=== PATIENT | female | born 1975 | race Two or more races ===

== ENCOUNTER 2020-08-23 16:19 | Inpatient (IN) | payer OTHER ==
[~2020-08-23] VITALS: Ht 170.2 cm; Wt 92.9 kg
[2020-08-23] MEDS ORDERED: NS 1,000 ML IV ONE (17:00)
[2020-08-23] MEDS ORDERED: GI COCKTAIL 50ML BTL(HYOSCYAMINE/MAALOX/LIDOCAINE VISCOUS)(1:3:1) PO ONE (17:00)
[2020-08-23] MEDS: GASTROGRAFIN SOLUTION 30ML PO SCH ×2 (17:19→17:54)
--- NOTE | 2020-08-23 17:26 | REPVR ---
PROCEDURE INFORMATION: Exam: XR Chest, 2 Views Exam date and time: 08/23/2020 5:08 PM Age: 44 years old Clinical indication: Other: Epigastric pain TECHNIQUE: Imaging protocol: XR of the chest Views: 2 views. COMPARISON: No relevant prior studies available. FINDINGS: Lungs: Unremarkable. No consolidation. Pleural space: Unremarkable. No pleural effusion. No pneumothorax. Heart/Mediastinum: Unremarkable. No cardiomegaly. Bones/joints: Unremarkable. IMPRESSION: No acute findings. Electronically signed by: Cathi Canales On 08/23/2020 17:25:55 PM
[2020-08-23 17:43] LABS: BASO # 0.1 10^3/uL (0.0-0.2); BASO % 0.5 % (0.0-1.0); EOS # 0.1 10^3/uL (0.0-0.5); EOS % 0.6 % (0.0-3.0); HEMATOCRIT 21.3 % (36.0-47.0); LYMPH # 2.4 10^3/uL (1.5-5.0); LYMPH % 23.3 % (24.0-44.0); MEAN CORPUSCULAR HEMOGLOBIN 14.1 pg (27.0-33.0); MEAN CORPUSCULAR HGB CONC 23.5 g/dl (32.0-36.5); MONO # 0.7 10^3/uL (0.0-0.8); MONO % 7.1 % (0.0-5.0); NEUTROPHILS # 6.9 10^3/uL (1.5-8.5); PLATELET COUNT, AUTOMATED 580 10^3/uL (150-450); RED BLOOD COUNT 3.55 10^6/uL (4.00-5.40); WHITE BLOOD COUNT 10.2 10^3/uL (4.0-10.0)
[2020-08-23 18:01] LABS: ALBUMIN 3.7 GM/DL (3.2-5.2); ALT/SGPT 13 U/L (12-78); BILIRUBIN,DIRECT < 0.1 MG/DL (0.0-0.2); BILIRUBIN,TOTAL 0.4 MG/DL (0.2-1.0); CK-MB VALUE MASS < 1.0 NG/ML (<3.6); CPK CREATINE PHOSPHOKINASE 39 U/L (26-192); LIPASE 73 U/L (73-393); MB/CK RELATIVE INDEX 2.56 (< OR =4); TROPONIN I < 0.02 NG/ML (< 0.10)
[2020-08-23] MEDS ORDERED: ISOVUE-370 76% 100ML VIAL As Ordered ONE (18:34)
--- NOTE | 2020-08-23 19:19 | REPVR ---
PROCEDURE INFORMATION: Exam: CT Abdomen And Pelvis With Contrast Exam date and time: 08/23/2020 6:43 PM Age: 44 years old Clinical indication: Abdominal pain; Epigastric; Additional info: Epigastric pain, 15mo S/P afia-en-y TECHNIQUE: Imaging protocol: Computed tomography of the abdomen and pelvis with intravenous contrast. Radiation optimization: All CT scans at this facility use at least one of these dose optimization techniques: automated exposure control; mA and/or kV adjustment per patient size (includes targeted exams where dose is matched to clinical indication); or iterative reconstruction. Contrast material: ISOVUE 370; Contrast volume: 100 ml; Contrast route: INTRAVENOUS (IV); Other contrast: Oral; COMPARISON: No relevant prior studies available. FINDINGS: Lungs: The lung bases are unremarkable. Mediastinal space: There is thickening of the wall of the distal esophagus. Liver: There are no focal liver lesions. Gallbladder and bile ducts: The gallbladder is unremarkable. Pancreas: The pancreas is normal. Spleen: The spleen is normal. Adrenals: The adrenal glands are unremarkable. Kidneys and ureters: The kidneys are unremarkable. Stomach and bowel: There is no definite evidence of intestinal obstruction. Small bowel loops in the left upper quadrant postoperative bed measure up to 2.6 cm in width. Appendix: No evidence of appendicitis. Intraperitoneal space: No free air. No significant fluid collection. Vasculature: There is no evidence of an infrarenal abdominal aortic aneurysm. Lymph nodes: Unremarkable. No enlarged lymph nodes. Urinary bladder: The bladder is unremarkable. Reproductive: Unremarkable as visualized. Bones/joints: Unremarkable. No acute fracture. Soft tissues: Unremarkable. Other findings: Evidence of Afia-en-Y procedure. IMPRESSION: 1. No definite evidence of small bowel obstruction. Bowel loops are at upper limits of normal in width in the left upper quadrant but this may be postoperative finding. 2. There is thickening of the distal esophagus which could be due to esophagitis but may also be postoperative. Electronically signed by: Cathi Canales On 08/23/2020 19:19:43 PM
[2020-08-23 20:08] VITALS: BP 125/60
[2020-08-23 20:31] VITALS: BP 116/68
[2020-08-23] MEDS ORDERED: ACETAMINOPHEN TAB 650MG DOSE (2X325MG) PO PRN (20:45)
[2020-08-23] MEDS ORDERED: [UNRECOGNIZED DRUG - CODE] PO (20:49)
[2020-08-23] MEDS ORDERED: DESM0.1T2 PO (20:49)
[2020-08-23] MEDS ORDERED: TEMO0.0517 TOP (20:49)
[2020-08-23] MEDS ORDERED: LORA-674 PO (20:49)
[2020-08-23] MEDS ORDERED: METF-838 PO (20:49)
[2020-08-23] MEDS ORDERED: SALI0.6530 (20:49)
[2020-08-23] MEDS ORDERED: VANI1CRE5 TOP (20:49)
--- NOTE | 2020-08-23 21:03 | HPEPDOC ---
General Date of Admission 08/23/20 Date of Service: Aug 23, 2020 Chief Complaint The patient is a 44-year-old female admitted with a reason for visit of Chest Pain. Source: Patient Exam Limitations: No limitations Timing/Duration: Day(s) Severity: Moderate Associated Symptoms: Shortness of breath History of Present Illness Patient is 44 years old female with past medical history of morbid obesity, status post gastric bypass surgery 15 months ago, pituitary adenoma diagnosed in 2012 currently patient takes desmopressin presented hospital with increased shortness of breath, epigastric pain, lightheadedness and dizziness. Patient stated that she has been having the symptoms for past few weeks. Of note patient stated that she takes iron supplementation and vitamins. Patient denied blood in the stool, however she noticed a few episodes of black stool. Of note patient takes naproxen for pain In ER patient was found to have hemoglobin of 5, hematocrit 22. Stool occult blood was negative. CT abdomen/pelvis showed There is thickening of the distal esophagus which could be due to esophagitis but may also be postoperative Home Medications Scheduled Desmopressin Acetate (Desmopressin Acetate) 0.1 Mg Tablet, 0.1 MG PO QID, ( Reported) Metformin HCl (Metformin HCl ER) 500 Mg Tab.er.24h, 1,000 MG PO BID, (Reported) Scheduled PRN Clobetasol Propionate (Temovate) 15 Gm Oint...g., 1 DOSE TOP BID PRN for PSORIASIS, (Reported) Emollient Base (Vanicream) 453 Gm Cream..g., 1 DOSE TOP BID PRN for PSORIASIS, (Reported) Loratadine (Loratadine) 10 Mg Tablet, 10 MG PO DAILY PRN for ALLERGY SYMPTOMS, (Reported) Naproxen (Naproxen) 500 Mg Tablet, 500 MG PO BID PRN for PAIN, (Reported) Phenol (Sore Throat [place]) 177 Ml [place], 1 SPRAY PO Q6H PRN for SORE THROAT, (Reported) Sodium Chloride ([place] Nasal [place]) 88 Ml [place], 1 SPRAY NA QID PRN for NASAL DRYNESS, (Reported) Allergies Coded Allergies: No Known Allergies (Unverified , 08/23/20) Past Medical History Medical History history of morbid obesity, status post gastric bypass surgery 15 months ago, pituitary adenoma diagnosed in 2013 Surgical History Gastric bypass surgery Family History Mother had a stroke Social History * Smoker: Denies Alcohol: Denies Drugs: denies A-FIB/CHADSVASC A-FIB History Current/History of A-Fib/PAF?: No Current PO Anticoag Therapy: No Review of Systems Constitutional: Denies: Chills Eyes: Denies: Pain ENT: Denies: Head Aches Skin: Denies: Rash, Lesions Pulmonary: Reports: Dyspnea Cardiovascular: Denies: Chest Pain, Palpitations Gastrointestinal: Reports: Abdominal Pain (epigastric); Denies: Nausea, Vomiting Genitourinary: Denies: Dysuria, Frequency Hematologic: Denies: Bruising Endocrine: Denies: Polydipsia Musculoskeletal: Denies: Neck Pain, Back Pain Neurological: Denies: Weakness Psych: Reports: Mood Normal Physical Examination General Exam: Positive: Alert, Cooperative Eye Exam: Positive: PERRLA ENT Exam: Positive: Atraumatic Neck Exam: Positive: Supple; Negative: JVD Chest Exam: Positive: Clear to auscultation Heart Exam: Positive: Rate Normal Telemetry: Positive: No significant arrhythmia Abdomen Exam: Positive: Normal bowel sounds Extremity Exam: Negative: Clubbing, Cyanosis Neuro Exam: Positive: Strength at 5/5 X4 ext, Cranial Nerves 3-12 NL Psych Exam: Positive: Mental status NL Vital Signs Vital Signs Date Time Temp Pulse Resp B/P (MAP) Pulse Ox O2 Delivery O2 Flow Rate FiO2 08/23/20 20:31 98.1 80 18 116/68 100 Room Air Laboratory Data Labs 24H Laboratory Tests 2 08/23/20 17:07: Immature Granulocyte % (Auto) 0.5, Neutrophils (%) (Auto) 68.0H, Lymphocytes (%) (Auto) 23.3L, Monocytes (%) (Auto) 7.1H, Eosinophils (%) (Auto) 0.6, Basophils (%) (Auto) 0.5, Neutrophils # (Auto) 6.9, Lymphocytes # (Auto) 2.4, Monocytes # (Auto) 0.7, Eosinophils # (Auto) 0.1, Basophils # (Auto) 0.1, Nucleated Red Blood Cells % (auto) 0.0, Total Bilirubin 0.4, Direct Bilirubin < 0.1, Aspartate Amino Transf (AST/SGOT) 8, Alanine Aminotransferase (ALT/SGPT) 13, Alkaline Phosphatase 61, Total Creatine Kinase 39, Creatine Kinase MB < 1.0, Creatine Kinase MB Relative Index 2.56, Troponin I < 0.02, Total Protein 8.0, Albumin 3.7, Albumin/Globulin Ratio 0.9L, Lipase 73 08/23/20 17:08: POC Glucose (Misc Panel) 92, POC Sodium (Misc Panel) 143, POC Potassium (Misc Panel) 3.8, POC Chloride (Misc Panel) 106, POC Total CO2 (Misc Panel) 22.0L, POC Blood Urea Nitrogen (Misc Panel 9, POC Ionized Calcium (Misc Panel) 4.9, POC Creatinine (Misc Panel) 0.6, POC Hematocrit (Misc Panel) 22.0L CBC/BMP Laboratory Tests 08/23/20 17:07 Assessment/Plan Patient is 44 years old female with past medical history of morbid obesity, status post gastric bypass surgery 15 months ago, pituitary adenoma diagnosed in 2012 currently patient takes desmopressin presented hospital with increased shortness of breath, epigastric pain, lightheadedness and dizziness. Patient stated that she has been having the symptoms for past few weeks. Of note patient stated that she takes iron supplementation and vitamins. In ER patient was found to have hemoglobin of 5, hematocrit 22. Stool occult blood was negative. CT abdomen/pelvis showed There is thickening of the distal esophagus which could be due to esophagitis but may also be postoperative Problems (1) Acute anemia Status: Acute Problem Text: Differential diagnosis includes GI bleed secondary to NSAIDs or deficiency in production secondary to malabsorption due to previous gastric bypa ss surgery 2 units of blood transfusion Consider GI consult in the morning H&H every 6 hours Will repeat stool for occult blood (2) Epigastric pain Status: Acute Problem Text: We'll check stool for H. pylori, then start PPI Most likely patient will need EGD and colonoscopy See above Plan / VTE VTE Prophylaxis Ordered?: No VTE Exclusion Pharmacological: Active Bleeding JOHN LEUNG DO Aug 23, 2020 21:03
[2020-08-23] MEDS ORDERED: NAPR-885 PO (21:12)
[2020-08-23 21:13] VITALS: BP 132/60
[2020-08-23] MEDS ORDERED: CLOBETASOL PROP 0.05% OINT 30 GM TOP PRN (21:45)
[2020-08-23] MEDS ORDERED: CHLORASEPTIC SPRAY PO PRN (21:45)
[2020-08-23] MEDS ORDERED: LORATADINE 10 MG TAB PO PRN (21:45)
[2020-08-23] MEDS ORDERED: SODIUM CHLORIDE NASAL 0.65% SPRAY BTL (OCEAN) PRN (21:45)
[2020-08-23] MEDS ORDERED: VANICREAM MOISTURIZING SKIN CREAM 113GM TUBE TOP PRN (21:45)
[2020-08-23 22:09] VITALS: BP 143/60
[2020-08-23 22:22] VITALS: BP 112/49
[2020-08-24] VITALS (17 sets, daily range): BP systolic 99–119; BP diastolic 44–72
[2020-08-24] MEDS ORDERED: ONDANSETRON 4MG/2ML VIAL IV PRN
[2020-08-24] MEDS: DESMOPRESSIN ACETATE 0.1 MG TAB PO SCH ×5 (00:11→20:50)
[2020-08-24 00:21] LABS: HEMATOCRIT 24.7 % (36.0-47.0)
[2020-08-24 00:29] LABS: HEMOGLOBIN 6.1 g/dl (12.0-15.5)
[2020-08-24 06:36] LABS: HEMATOCRIT 23.8 % (36.0-47.0); MEAN CORPUSCULAR HEMOGLOBIN 17.3 pg (27.0-33.0); MEAN CORPUSCULAR HGB CONC 26.5 g/dl (32.0-36.5); MEAN CORPUSCULAR VOLUME 65.2 fl (80.0-96.0); PLATELET COUNT, AUTOMATED 483 10^3/uL (150-450); RED BLOOD COUNT 3.65 10^6/uL (4.00-5.40); WHITE BLOOD COUNT 9.7 10^3/uL (4.0-10.0)
[2020-08-24 06:42] LABS: HEMOGLOBIN 6.3 g/dl (12.0-15.5)
[2020-08-24 06:44] LABS: BLOOD UREA NITROGEN 10 MG/DL (7-18); CALCIUM LEVEL 8.1 MG/DL (8.5-10.1); CARBON DIOXIDE LEVEL 27 MEQ/L (21-32); CHLORIDE LEVEL 110 MEQ/L (98-107); CREATININE FOR GFR 0.65 MG/DL (0.55-1.30); GLOMERULAR FILTRATION RATE > 60.0 (>58); GLUCOSE, FASTING 82 MG/DL (70-100); MAGNESIUM LEVEL 2.6 MG/DL (1.8-2.4); POTASSIUM SERUM 4.2 MEQ/L (3.5-5.1); SODIUM LEVEL 141 MEQ/L (136-145)
--- NOTE | 2020-08-24 08:23 | ECGEPIP ---
[facility] - ED Test Date: 2020-08-23 Pat Name: PRIYA WATSON Department: Room: [place] [address] Gender: Female Chief Executive Or Managing Director: elaina : 1975 Requested By: SHAHLA LEE Order Number: [id number] Reading MD: Ever Devine Measurements Intervals [place] Rate: 66 P: 45 AL: 123 QRS: 38 QRSD: 91 T: 34 QT: 396 QTc: 418 Interpretive Statements SINUS RHYTHM NSTTW ABNORMALITY(S) NO PRIORS FOR COMPARISON Electronically Signed on 08-24-2020 8:23:16 EDT by Ever Devine
[2020-08-24] MEDS ORDERED: metFORMIN XR 500MG TAB *GLUCOPHAGE XR PO SCH (09:00)
[2020-08-24 09:56] LABS: HEMATOCRIT 24.9 % (36.0-47.0); MEAN CORPUSCULAR HEMOGLOBIN 17.6 pg (27.0-33.0); MEAN CORPUSCULAR HGB CONC 26.5 g/dl (32.0-36.5); MEAN CORPUSCULAR VOLUME 66.4 fl (80.0-96.0); PLATELET COUNT, AUTOMATED 480 10^3/uL (150-450); RED BLOOD COUNT 3.75 10^6/uL (4.00-5.40); WHITE BLOOD COUNT 9.8 10^3/uL (4.0-10.0)
[2020-08-24 10:02] LABS: HEMOGLOBIN 6.6 g/dl (12.0-15.5)
[2020-08-24] MEDS ORDERED: GLUCOSE 4GM CHEW TABLET PO PRN (10:15)
[2020-08-24] MEDS ORDERED: DEXTROSE 50% 50 ML SYRINGE IV PRN (10:15)
[2020-08-24] MEDS ORDERED: GLUCAGON INJ 1MG VIAL SC PRN (10:15)
[2020-08-24 10:19] LABS: PERCENT SATURATION 6.4 % (13.2-45.0)
[2020-08-24] MEDS ORDERED: METAMUCIL (PSYLLIUM) PACKET PO PRN (11:00)
[2020-08-24] MEDS: HumaLOG INSULIN (NovoLOG) PER UNIT SC SCH ×3 (12:00→20:48)
[2020-08-24 18:08] LABS: HEMATOCRIT 32.8 % (36.0-47.0); MEAN CORPUSCULAR HEMOGLOBIN 19.2 pg (27.0-33.0); MEAN CORPUSCULAR VOLUME 68.5 fl (80.0-96.0); RED BLOOD COUNT 4.79 10^6/uL (4.00-5.40); WHITE BLOOD COUNT 11.9 10^3/uL (4.0-10.0)
[2020-08-24 18:12] LABS: HEMOGLOBIN 9.2 g/dl (12.0-15.5); PLATELET COUNT, AUTOMATED 412 10^3/uL (150-450)
--- NOTE | 2020-08-24 19:21 | IPNPDOC ---
Date Seen The patient was seen on 08/24/20. Progress Note SUBJECTIVE: Did not correct appropriately s/p 2 units PRBC and was given another 2 PRBC today. CBC post transfusion .. Iron low at 27, will order iron infusions. Patient states to feel improved, denies chest pain, shortness of breath, n/v/d. OBJECTIVE: VITAL SIGNS: Please see below PHYSICAL EXAMINATION: CONSTITUTIONAL: No acute distress, resting comfortably, AAO x 3 EYES: PERRLA, EOM intact HENT, MOUTH: Normocephalic, atraumatic, moist mucous membranes NECK: SUPPLE, no JVD, no lymphadenopathy, no carotid bruit CV: Regular rate and rhythm, S1S2 normal, no murmurs/rubs/gallops RESPIRATORY: Clear to auscultation bilaterally, no rales/rhonchi/wheezes GI: obese abd, multiple abd scars, well healed. BS positive in 4 quadrants, soft, nontender, nondistended, no rebound or guarding, no organomegaly : Deferred MUSCULOSKELETAL: Normal ROM. No cyanosis, clubbing, swelling, joint deformity, extremity edema INTEGUMENTARY: Intact, no rashes, no lesions, no erythema NEUROLOGIC: Cranial Nerves II-XII are intact, no focal deficits PSYCHIATRIC: Mood and affect are normal CURRENT MEDICATIONS: Please see below LABORATORY DATA: Please see below IMAGING: No new imaging ASSESSMENT: 44 y/o F with PMH of obesity status post gastric bypass surgery 15 months ago, pituitary adenoma on desmopressin admitted for severe iron deficiency anemia. PLAN: Acute on chronic anemia likely 2/2 to iron deficiency likely 2/2 to malabsorption s/p gastric bypass surgery. R/o GI bleed. -No signs of active bleeding but occult blood ordered -Iron low at 27 -S/p 4 units PRBC today with H/H 9. -To do iron infusion 08/25/20 -F/u AM CBC Epigastric pain/esophagitis?, acute and improved. -F/u H. pylori -PPI -Consider EGD and colonoscopy Pituitary adenoma -F/u o/p -C/w desmopressin DM type II -C/w ISS DVT px -SCD, teds with anemia while r/o bleed DISPOSITION: Iron infusion in the AM, possible d/c after. VS, I&O, 24H, Fishbone Vital Signs/I&O Vital Signs Date Time Temp Pulse Resp B/P (MAP) Pulse Ox O2 Delivery O2 Flow Rate FiO2 08/24/20 16:25 98.8 58 18 108/51 (70) 99 Room Air I&O- Last 24 Hours up to 6 AM 08/24/20 06:00 Intake Total 3891 ml Output Total 2500 ml Balance 1391 ml Laboratory Data 24H LABS Laboratory Tests 2 08/24/20 06:10: Nucleated Red Blood Cells % (auto) 0.0, Anion Gap 4L, Glomerular Filtration Rate > 60.0, Calcium Level 8.1L, Magnesium Level 2.6H 08/24/20 09:36: Nucleated Red Blood Cells % (auto) 0.0, Iron Level 27L, Total Iron Binding Capacity 423, Transferrin % Saturation 6.4L, Ferritin 3L 08/24/20 11:31: Bedside Glucose (Misc Panel) 93 08/24/20 16:24: Bedside Glucose (Misc Panel) 96 08/24/20 17:44: Nucleated Red Blood Cells % (auto) 0.0 CBC/BMP Laboratory Tests 08/23/20 23:59 08/24/20 06:10 08/24/20 09:36 08/24/20 17:44 Current Medications Current Medications Medications (Trade) Dose Ordered Sig/Renea Route PRN Reason Start Time Stop Time Status Last Admin Dose Admin Acetaminophen (Tylenol Tab) 650 mg Q4H PRN PO PAIN OR FEVER 08/23/20 20:45 Clobetasol Propionate (Temovate 0.05%) APPLY TO AREAS OF PSORIA... BIDP PRN TOP PSORIASIS 08/23/20 21:45 Desmopressin Acetate (Ddavp) 0.1 mg QID PO 08/23/20 21:00 08/24/20 16:18 Dextrose (Dextrose 50%) 25 ml ASDIRECTED PRN IV SEE LABEL COMMENTS 08/24/20 10:15 Diatrizoate Meglum/ Diatrizoate Sod (Gastrografin) 10 ml Q30M PO 08/23/20 17:30 08/23/20 18:01 DC 08/23/20 17:54 Emollient Cream (Vanicream) APPLY TO AREAS OF PSORIA... BIDP PRN TOP PSORIASIS 08/23/20 21:45 Glucagon (Glucagon) 1 mg ASDIRECTED PRN SC SEE LABEL COMMENTS 08/24/20 10:15 Glucose (Glucose) 16 GM ASDIRECTED PRN PO SEE LABEL COMMENTS 08/24/20 10:15 Home Med (Med Rec Complete!) ASDIRECTED XX 08/23/20 21:15 08/23/20 21:14 DC Insulin Human Lispro (HumaLOG INSULIN) SEE PROTOCOL TABLE AC SC 08/24/20 12:00 Insulin Human Lispro (HumaLOG INSULIN) SEE PROTOCOL TABLE QHS SC 08/24/20 21:00 Loratadine (Claritin) 10 mg DAILYPRN PRN PO ALLERGY SYMPTOMS 08/23/20 21:45 Metformin HCl (Glucophage Xr) 1,000 mg BID PO 08/24/20 09:00 08/24/20 10:12 DC 08/24/20 08:40 Ondansetron HCl (ZOFRAN INJection) 4 mg Q6HP PRN IV NAUSEA OR VOMITING 08/24/20 00:00 08/24/20 00:11 Phenol (Chloraseptic [place]) 1 spray Q6HP PRN PO SORE THROAT 08/23/20 21:45 Psyllium Hydrophilic Mucilloid (Metamucil) 1 pkt DAILYPRN PRN PO CONSTIPATION 08/24/20 11:00 08/24/20 10:32 Sodium Chloride ([place] Nasal [place]) 1 spray QIDP PRN NA NASAL DRYNESS 08/23/20 21:45 Allergies Coded Allergies: No Known Allergies (Unverified , 08/23/20) Cindy Chaudhari MD Aug 24, 2020 19:21
[2020-08-25 01:19] LABS: HEMATOCRIT 28.4 % (36.0-47.0); HEMOGLOBIN 7.9 g/dl (12.0-15.5); MEAN CORPUSCULAR HEMOGLOBIN 19.3 pg (27.0-33.0); MEAN CORPUSCULAR HGB CONC 27.8 g/dl (32.0-36.5); MEAN CORPUSCULAR VOLUME 69.3 fl (80.0-96.0); PLATELET COUNT, AUTOMATED 415 10^3/uL (150-450)
[2020-08-25 06:00] VITALS: BP 103/53
[2020-08-25 06:04] LABS: HEMOGLOBIN 8.5 g/dl (12.0-15.5); MEAN CORPUSCULAR HEMOGLOBIN 19.5 pg (27.0-33.0); MEAN CORPUSCULAR HGB CONC 28.3 g/dl (32.0-36.5); PLATELET COUNT, AUTOMATED 398 10^3/uL (150-450); RED BLOOD COUNT 4.35 10^6/uL (4.00-5.40); WHITE BLOOD COUNT 9.4 10^3/uL (4.0-10.0)
[2020-08-25 06:25] LABS: ALT/SGPT 11 U/L (12-78); BILIRUBIN,TOTAL 0.6 MG/DL (0.2-1.0); BLOOD UREA NITROGEN 14 MG/DL (7-18); CARBON DIOXIDE LEVEL 24 MEQ/L (21-32); CHLORIDE LEVEL 109 MEQ/L (98-107); CREATININE FOR GFR 0.68 MG/DL (0.55-1.30); GLOMERULAR FILTRATION RATE > 60.0 (>58); GLUCOSE, FASTING 78 MG/DL (70-100); POTASSIUM SERUM 3.8 MEQ/L (3.5-5.1); SODIUM LEVEL 140 MEQ/L (136-145)
[2020-08-25] MEDS: HumaLOG INSULIN (NovoLOG) PER UNIT SC SCH ×4 (07:30→20:52)
[2020-08-25 09:09] LABS: HEMOGLOBIN 8.7 g/dl (12.0-15.5); MEAN CORPUSCULAR HEMOGLOBIN 19.6 pg (27.0-33.0); MEAN CORPUSCULAR HGB CONC 28.1 g/dl (32.0-36.5); PLATELET COUNT, AUTOMATED 451 10^3/uL (150-450); RED BLOOD COUNT 4.43 10^6/uL (4.00-5.40); WHITE BLOOD COUNT 9.8 10^3/uL (4.0-10.0)
[2020-08-25] MEDS: PANTOPRAZOLE 40MG TAB (PROTONIX) PO SCH (10:47)
[2020-08-25] MEDS: DESMOPRESSIN ACETATE 0.1 MG TAB PO SCH ×4 (10:47→20:52)
[2020-08-25] MEDS: MIRALAX *UNIT DOSE* 17GM PACKET PO SCH (10:47)
[2020-08-25] MEDS ORDERED: IRON SUCROSE 25 MG in NS 25 ML IV ONE (11:00)
[2020-08-25] MEDS ORDERED: NS IV ONE (12:00)
[2020-08-25] MEDS ORDERED: IRON SUCROSE IV ONE (12:00)
[2020-08-25 14:00] VITALS: BP 112/51
--- NOTE | 2020-08-25 16:57 | IPNPDOC ---
Date Seen The patient was seen on 08/25/20. Progress Note SUBJECTIVE: H/H slightly lower at 8.5/30, occult blood neg. Iron infusion to be given today and 08/26/20. Patient denies chest pain, shortness of breath, n/v/d. OBJECTIVE: VITAL SIGNS: Please see below PHYSICAL EXAMINATION: CONSTITUTIONAL: No acute distress, resting comfortably, AAO x 3 EYES: PERRLA, EOM intact HENT, MOUTH: Normocephalic, atraumatic, moist mucous membranes NECK: SUPPLE, no JVD, no lymphadenopathy, no carotid bruit CV: Regular rate and rhythm, S1S2 normal, no murmurs/rubs/gallops RESPIRATORY: Clear to auscultation bilaterally, no rales/rhonchi/wheezes GI: obese abd, multiple abd scars, well healed. BS positive in 4 quadrants, soft, nontender, nondistended, no rebound or guarding, no organomegaly : Deferred MUSCULOSKELETAL: Normal ROM. No cyanosis, clubbing, swelling, joint deformity, extremity edema INTEGUMENTARY: Intact, no rashes, no lesions, no erythema NEUROLOGIC: Cranial Nerves II-XII are intact, no focal deficits PSYCHIATRIC: Mood and affect are normal CURRENT MEDICATIONS: Please see below LABORATORY DATA: Please see below IMAGING: No new imaging ASSESSMENT: 44 y/o F with PMH of obesity status post gastric bypass surgery 15 months ago, pituitary adenoma on desmopressin admitted for severe iron deficiency anemia. PLAN: Acute on chronic anemia likely 2/2 to iron deficiency likely 2/2 to malabsorption s/p gastric bypass surgery. -No signs of active bleeding, occult blood negative ruling out GI bleed as cause -Iron low at 27 -S/p 4 units PRBC this hospital stay -Iron infusion x 2, first to be given today -F/u AM CBC Epigastric pain/esophagitis?, acute and improved. -H. pylori pending -PPI -Consider EGD and colonoscopy o/p Pituitary adenoma -F/u o/p -C/w desmopressin DM type II -C/w ISS DVT px -SCD, teds with anemia while r/o bleed DISPOSITION: Iron infusion today and tomorrow then likely d/c home if H/H re юлия stable. Encouraging OOBTC and with meals. VS, I&O, 24H, Fishbone Vital Signs/I&O Vital Signs Date Time Temp Pulse Resp B/P (MAP) Pulse Ox O2 Delivery O2 Flow Rate FiO2 08/25/20 14:00 98.4 61 17 112/51 (71) 98 Room Air I&O- Last 24 Hours up to 6 AM 08/25/20 06:00 Intake Total 4095 ml Output Total 1350 ml Balance 2745 ml Laboratory Data 24H LABS Laboratory Tests 2 08/24/20 17:44: Nucleated Red Blood Cells % (auto) 0.0 08/24/20 20:04: Bedside Glucose (Misc Panel) 96 08/25/20 00:54: Nucleated Red Blood Cells % (auto) 0.0 08/25/20 05:51: Nucleated Red Blood Cells % (auto) 0.0, Anion Gap 7L, Glomerular Filtration Rate > 60.0, Calcium Level 8.0L, Total Bilirubin 0.6, Aspartate Amino Transf (AST/SGOT) 10, Alanine Aminotransferase (ALT/SGPT) 11L, Alkaline Phosphatase 52, Total Protein 7.0, Albumin 3.0L, Albumin/Globulin Ratio 0.8L 08/25/20 08:55: Nucleated Red Blood Cells % (auto) 0.0, Whole Blood Ionized Calcium 4.6 08/25/20 11:30: Bedside Glucose (Misc Panel) 107H 08/25/20 14:35: CBC/BMP Laboratory Tests 08/24/20 17:44 08/25/20 00:54 08/25/20 05:51 08/25/20 08:55 Microbiology Microbiology 08/25/20 Stool Occult Blood (JUNE) - Final, Complete Current Medications Current Medications Medications (Trade) Dose Ordered Sig/Renea Route PRN Reason Start Time Stop Time Status Last Admin Dose Admin Acetaminophen (Tylenol Tab) 650 mg Q4H PRN PO PAIN OR FEVER 08/23/20 20:45 Clobetasol Propionate (Temovate 0.05%) APPLY TO AREAS OF PSORIA... BIDP PRN TOP PSORIASIS 08/23/20 21:45 Desmopressin Acetate (Ddavp) 0.1 mg QID PO 08/23/20 21:00 08/25/20 14:27 Dextrose (Dextrose 50%) 25 ml ASDIRECTED PRN IV SEE LABEL COMMENTS 08/24/20 10:15 Diatrizoate Meglum/ Diatrizoate Sod (Gastrografin) 10 ml Q30M PO 08/23/20 17:30 08/23/20 18:01 DC 08/23/20 17:54 Emollient Cream (Vanicream) APPLY TO AREAS OF PSORIA... BIDP PRN TOP PSORIASIS 08/23/20 21:45 Glucagon (Glucagon) 1 mg ASDIRECTED PRN SC SEE LABEL COMMENTS 08/24/20 10:15 Glucose (Glucose) 16 GM ASDIRECTED PRN PO SEE LABEL COMMENTS 08/24/20 10:15 Home Med (Med Rec Complete!) ASDIRECTED XX 08/23/20 21:15 08/23/20 21:14 DC Insulin Human Lispro (HumaLOG INSULIN) SEE PROTOCOL TABLE AC SC 08/24/20 12:00 Insulin Human Lispro (HumaLOG INSULIN) SEE PROTOCOL TABLE QHS SC 08/24/20 21:00 Loratadine (Claritin) 10 mg DAILYPRN PRN PO ALLERGY SYMPTOMS 08/23/20 21:45 Metformin HCl (Glucophage Xr) 1,000 mg BID PO 08/24/20 09:00 08/24/20 10:12 DC 08/24/20 08:40 Ondansetron HCl (ZOFRAN INJection) 4 mg Q6HP PRN IV NAUSEA OR VOMITING 08/24/20 00:00 08/24/20 00:11 Pantoprazole Sodium (Protonix) 40 mg DAILY PO 08/25/20 09:00 08/25/20 10:47 Phenol (Chloraseptic [place]) 1 spray Q6HP PRN PO SORE THROAT 08/23/20 21:45 Polyethylene Glycol (Miralax) 1 pkt DAILY PO 08/25/20 09:00 08/25/20 10:47 Psyllium Hydrophilic Mucilloid (Metamucil) 1 pkt DAILYPRN PRN PO CONSTIPATION 08/24/20 11:00 08/24/20 10:32 Sodium Chloride ([place] Nasal [place]) 1 spray QIDP PRN NA NASAL DRYNESS 08/23/20 21:45 Allergies Coded Allergies: No Known Allergies (Unverified , 08/23/20) Cindy Chaudhari MD Aug 25, 2020 16:57
[2020-08-25 20:42] LABS: HEMATOCRIT 35.3 % (36.0-47.0); HEMOGLOBIN 9.6 g/dl (12.0-15.5); MEAN CORPUSCULAR HEMOGLOBIN 19.4 pg (27.0-33.0); MEAN CORPUSCULAR HGB CONC 27.2 g/dl (32.0-36.5); MEAN CORPUSCULAR VOLUME 71.5 fl (80.0-96.0); PLATELET COUNT, AUTOMATED 485 10^3/uL (150-450); RED BLOOD COUNT 4.94 10^6/uL (4.00-5.40); WHITE BLOOD COUNT 12.5 10^3/uL (4.0-10.0)
[2020-08-25 22:00] VITALS: BP 124/58
[2020-08-26 06:00] VITALS: BP 103/59
[2020-08-26 06:14] LABS: HEMOGLOBIN 9.2 g/dl (12.0-15.5); MEAN CORPUSCULAR HEMOGLOBIN 19.8 pg (27.0-33.0); MEAN CORPUSCULAR HGB CONC 27.9 g/dl (32.0-36.5); MEAN CORPUSCULAR VOLUME 71.1 fl (80.0-96.0); PLATELET COUNT, AUTOMATED 417 10^3/uL (150-450); RED BLOOD COUNT 4.64 10^6/uL (4.00-5.40); WHITE BLOOD COUNT 9.4 10^3/uL (4.0-10.0)
[2020-08-26 06:36] LABS: ALBUMIN 3.1 GM/DL (3.2-5.2); ALT/SGPT 10 U/L (12-78); BILIRUBIN,TOTAL 0.3 MG/DL (0.2-1.0); BLOOD UREA NITROGEN 9 MG/DL (7-18); CALCIUM LEVEL 8.4 MG/DL (8.5-10.1); CARBON DIOXIDE LEVEL 26 MEQ/L (21-32); CHLORIDE LEVEL 114 MEQ/L (98-107); CREATININE FOR GFR 0.71 MG/DL (0.55-1.30); GLOMERULAR FILTRATION RATE > 60.0 (>58); GLUCOSE, FASTING 82 MG/DL (70-100); POTASSIUM SERUM 3.9 MEQ/L (3.5-5.1); SODIUM LEVEL 143 MEQ/L (136-145); TOTAL PROTEIN 7.5 GM/DL (6.4-8.2)
[2020-08-26] MEDS ORDERED: FERR325T3 PO (08:01)
[2020-08-26] MEDS ORDERED: VITA-158 PO (08:01)
[2020-08-26] MEDS: MIRALAX *UNIT DOSE* 17GM PACKET PO SCH (09:00)
[2020-08-26] MEDS: PANTOPRAZOLE 40MG TAB (PROTONIX) PO SCH (09:24)
[2020-08-26] MEDS: DESMOPRESSIN ACETATE 0.1 MG TAB PO SCH (09:25)
[2020-08-26] MEDS: HumaLOG INSULIN (NovoLOG) PER UNIT SC SCH ×2 (09:26→12:00)
[2020-08-26] MEDS ORDERED: IRON SUCROSE 300 MG in NS 250 ML OVER 90 MIN. IV ONE (11:00)
[2020-08-26] MEDS ORDERED: OMEP1CAP73 PO ×2 (15:12→15:20)
--- NOTE | 2020-08-26 15:13 | DS.PDOC ---
Discharge Summary General Date of Admission Aug 23, 2020 at 20:40 Date of Discharge 08/26/20 Attending Physician: Cindy Chaudhari MD Discharge Summary HPI: Patient is 44 years old female with past medical history of morbid obesity, status post gastric bypass surgery 15 months ago, pituitary adenoma diagnosed in 2012 currently patient takes desmopressin presented hospital with increased shortness of breath, epigastric pain, lightheadedness and dizziness. Patient stated that she has been having the symptoms for past few weeks. Of note patient stated that she takes iron supplementation and vitamins. Patient denied blood in the stool, however she noticed a few episodes of black stool. Of note patient takes naproxen for pain In ER patient was found to have hemoglobin of 5, hematocrit 22. Stool occult blood was negative. CT abdomen/pelvis showed There is thickening of the distal esophagus which could be due to esophagitis but may also be postoperative. Patient admitted for symptomatic anemia, r/o GI bleed vs. / to chronic etiology (i.e. iron deficiency). HOSPITAL COURSE: The patient received 4 units of PRBC during her hospital stay. She was also given to iron infusions due to low iron levels, likely causing her chronic iron deficiency anemia. Occult blood was negative. Started on omeprazole for questionable esophagitis. The patient was discharged on 08/26/2020 and advised to follow-up with her primary care provider for her severe anemia. It is recommended that they repeats labs in the next several weeks and, if needed, for her to follow-up with a electrolysis engineer to keep a close eye on her iron deficiency. At the time of discharge the patient felt much improved and denied chest pain, shortness of breath, fevers, chills, abdominal pain, lightheadedness or di zziness. PMH: Hx morbid obesity, status post gastric bypass surgery 15 months ago, pituitary adenoma diagnosed in 2012 PSH: Surgical History Gastric bypass surgery Family Hx: Mother had a stroke SOCIAL HX: Smoker: Denies Alcohol: Denies Drugs: denies Lives in the area, FULL code ALLERGIES: Please see below. DISCHARGE MEDICATIONS: Please see below. PHYSICAL EXAMINATION: VS: Please see below CONSTITUTIONAL: No acute distress, resting comfortably, AAO x 3 EYES: PERRLA, EOM intact HENT, MOUTH: Normocephalic, atraumatic, moist mucous membranes NECK: SUPPLE, no JVD, no lymphadenopathy, no carotid bruit CV: Regular rate and rhythm, S1S2 normal, no murmurs/rubs/gallops RESPIRATORY: Clear to auscultation bilaterally, no rales/rhonchi/wheezes GI: obese abd, multiple abd scars, well healed. BS positive in 4 quadrants, soft, nontender, nondistended, no rebound or guarding, no organomegaly : Deferred MUSCULOSKELETAL: Normal ROM. No cyanosis, clubbing, swelling, joint deformity, extremity edema INTEGUMENTARY: Intact, no rashes, no lesions, no erythema NEUROLOGIC: Cranial Nerves II-XII are intact, no focal deficits PSYCHIATRIC: Mood and affect are normal CURRENT MEDICATIONS: Please see below LABORATORY DATA: Please see below IMAGING: No new imaging ASSESSMENT: 44 y/o F with PMH of obesity status post gastric bypass surgery 15 months ago, pituitary adenoma on desmopressin admitted for severe iron deficiency anemia. PLAN: Acute on chronic anemia likely 2/2 to iron deficiency likely 2/2 to malabsorption s/p gastric bypass surgery. -No signs of active bleeding, occult blood negative ruling out GI bleed as cause -Iron low at 27 -S/p 4 units PRBC, 2 iron infusion -Started on ferrous sulfater 325 PO BID and Vitamin C BID. -Advised to f/u closely with PCP and, if needed, a electrolysis engineer to ensure she is monitored closely for anemia. Esophagitis likely 2/2 to H. pylori infection, likely chronic -H. pylori IgG Abs high. Often this will mean that she has had in past; however, with findings on imaging and this high of IgG it is likely in this patient indicating long standing infection that has been untreated. -Started on triple therapy with PPI BID, clarithromycin, amoxicillin BID x 14 days along with probiotic. -Consider EGD and colonoscopy o/p Pituitary adenoma -F/u o/p -C/w desmopressin DM type II -C/w ISS DVT px -SCD, teds with anemia while r/o bleed DISPOSITION: Discharge home today with f/u with PCP, recommending consideration of referral to hematology as she will need closel monitoring of CBC TIME SPENT ON DISCHARGE: Greater than 30 minutes. Vital Signs/I&Os Vital Signs Date Time Temp Pulse Resp B/P (MAP) Pulse Ox O2 Delivery O2 Flow Rate FiO2 08/26/20 06:00 97.5 58 18 103/59 (74) 97 Room Air I&O- Last 24 Hours up to 6 AM 08/26/20 06:00 Intake Total 2660 ml Output Total 2375 ml Balance 285 ml Laboratory Data Labs 24H Laboratory Tests 2 08/25/20 16:45: Bedside Glucose (Misc Panel) 91 08/25/20 20:12: Nucleated Red Blood Cells % (auto) 0.0 08/25/20 20:26: Bedside Glucose (Misc Panel) 119H 08/26/20 05:35: Nucleated Red Blood Cells % (auto) 0.0, Anion Gap 3L, Glomerular Filtration Rate > 60.0, Calcium Level 8.4L, Total Bilirubin 0.3, Aspartate Amino Transf (AST/SGOT) 8, Alanine Aminotransferase (ALT/SGPT) 10L, Alkaline Phosphatase 55, Total Protein 7.5, Albumin 3.1L, Albumin/Globulin Ratio 0.7L 08/26/20 12:18: Bedside Glucose (Misc Panel) 117H CBC/BMP Laboratory Tests 08/25/20 20:12 08/26/20 05:35 FSBS Laboratory Tests Test 08/25/20 16:45 08/25/20 20:26 08/26/20 12:18 Range/Units Bedside Glucose (Misc Panel) 91 119 117 70-105 MG/DL Microbiology Microbiology 08/25/20 Stool Occult Blood (JUNE) - Final, Complete Discharge Medications Scheduled Ascorbic Acid (Vitamin C) 500 Mg Tablet, 500 MG PO BID Desmopressin Acetate (Desmopressin Acetate) 0.1 Mg Tablet, 0.1 MG PO QID, (Reported) Ferrous Sulfate (Ferrous Sulfate) 325 Mg Tablet.dr, 1 TAB PO BID Metformin HCl (Metformin HCl ER) 500 Mg Tab.er.24h, 1,000 MG PO BID, (Reported) Omeprazole (Omeprazole) 20 Mg Capsule.dr, 20 MG PO DAILY Scheduled PRN Clobetasol Propionate (Temovate) 15 Gm Oint...g., 1 DOSE TOP BID PRN for PSORIASIS, (Reported) Emollient Base (Vanicream) 453 Gm Cream..g., 1 DOSE TOP BID PRN for PSORIASIS, (Reported) Loratadine (Loratadine) 10 Mg Tablet, 10 MG PO DAILY PRN for ALLERGY SYMPTOMS, (Reported) Naproxen (Naproxen) 500 Mg Tablet, 500 MG PO BID PRN for PAIN, (Reported) Phenol (Sore Throat [place]) 177 Ml [place], 1 SPRAY PO Q6H PRN for SORE THROAT, (Reported) Sodium Chloride (Saline Nasal [place]) 88 Ml [place], 1 SPRAY NA QID PRN for NASAL DRYNESS, (Reported) Allergies Coded Allergies: No Known Allergies (Unverified , 08/23/20) Cindy Chaudhari MD Aug 26, 2020 15:13
[2020-08-26] MEDS ORDERED: PROB250C PO (15:20)
[2020-08-26] MEDS ORDERED: AMOX500T PO (15:20)
[2020-08-26] MEDS ORDERED: CLAR500T97 PO (15:20)
== END 2020-08-26 13:24 | disposition home or self-care (01) | DRG 812 ==
LOC: M ED 16:19 → M ED INP 20:40 → ENRESERV 21:08 → M MSPAV 22:22
PROVIDERS: ADMIT Internal Medicine; ATTEND Internal Medicine
PROC: 30233N1 Transfusion of Nonautologous Red Blood Cells into Peripheral Vein, Percutaneous Approach (ICD-10-PCS; principal; 2020-08-23)
DX: D50.9 Iron deficiency anemia, unspecified (principal); K91.2 Postsurgical malabsorption, not elsewhere classified; R10.13 Epigastric pain; Z98.84 Bariatric surgery status; D35.2 Benign neoplasm of pituitary gland; Z79.84 Long term (current) use of oral hypoglycemic drugs; Z79.899 Other long term (current) drug therapy; E11.9 Type 2 diabetes mellitus without complications; K20.90 Esophagitis, unspecified without bleeding

== ENCOUNTER 2021-02-04 20:08 | Emergency (ER) | payer OTHER ==
[~2021-02-04] VITALS: Ht 170.2 cm; Wt 94.5 kg
[~2021-02-04 20:08] MED LIST: AMOX500T PO; CLAR500T97 PO; DESM0.1T2 PO; FERR325T3 PO; LORA-674 PO; METF-838 PO; MULT1TAB PO; NAPR-885 PO; OMEP1CAP73 PO; PROB250C PO; SALI0.6530; TEMO0.0517 TOP; VANI1CRE5 TOP; VITA-158 PO; [UNRECOGNIZED DRUG - CODE] PO
[2021-02-04] MEDS ORDERED: PHEN15CA PO (20:16)
[2021-02-04] MEDS ORDERED: PANTOPRAZOLE 40MG VIAL (C9113 PER 1) IV ONE (20:50)
[2021-02-04] MEDS ORDERED: MORPHINE 4 MG/ML 1ML VIAL/SYRINGE (J2270) IV ONE ×2 (20:50→23:05)
[2021-02-04] MEDS ORDERED: ONDANSETRON 4MG/2ML VIAL IV ONE (20:50)
[2021-02-04] MEDS: GASTROGRAFIN SOLUTION 30ML PO SCH ×2 (22:10→22:58)
[2021-02-04 22:16] LABS: BASO % 0.5 % (0.0-1.0); EOS # 0.1 10^3/uL (0.0-0.5); EOS % 1.6 % (0.0-3.0); HEMATOCRIT 36.2 % (36.0-47.0); HEMOGLOBIN 10.8 g/dl (12.0-15.5); LYMPH # 2.1 10^3/uL (1.5-5.0); LYMPH % 24.4 % (24.0-44.0); MEAN CORPUSCULAR HEMOGLOBIN 26.6 pg (27.0-33.0); MEAN CORPUSCULAR HGB CONC 29.8 g/dl (32.0-36.5); MEAN CORPUSCULAR VOLUME 89.2 fl (80.0-96.0); MONO # 0.6 10^3/uL (0.0-0.8); MONO % 6.9 % (2.0-8.0); NEUTROPHILS # 5.8 10^3/uL (1.5-8.5); NEUTROPHILS % 66.3 % (36.0-66.0); PLATELET COUNT, AUTOMATED 335 10^3/uL (150-450); RED BLOOD COUNT 4.06 10^6/uL (4.00-5.40); WHITE BLOOD COUNT 8.7 10^3/uL (4.0-10.0)
[2021-02-04 22:45] LABS: ALBUMIN 3.5 GM/DL (3.2-5.2); ALT/SGPT 12 U/L (12-78); BILIRUBIN,DIRECT 0.1 MG/DL (0.0-0.2); BILIRUBIN,TOTAL 0.1 MG/DL (0.2-1.0); BLOOD UREA NITROGEN 11 MG/DL (7-18); CALCIUM LEVEL 8.5 MG/DL (8.5-10.1); CARBON DIOXIDE LEVEL 28 MEQ/L (21-32); CHLORIDE LEVEL 110 MEQ/L (98-107); CK-MB VALUE MASS < 1.0 NG/ML (<3.6); CPK CREATINE PHOSPHOKINASE 42 U/L (26-192); CREATININE FOR GFR 0.52 MG/DL (0.55-1.30); GLOMERULAR FILTRATION RATE > 60.0 (>58); GLUCOSE, FASTING 88 MG/DL (70-100); LIPASE 80 U/L (73-393); MB/CK RELATIVE INDEX 2.38 (< OR =4); POTASSIUM SERUM 3.8 MEQ/L (3.5-5.1); SODIUM LEVEL 143 MEQ/L (136-145); TOTAL PROTEIN 6.9 GM/DL (6.4-8.2); TROPONIN I < 0.02 NG/ML (< 0.10)
[2021-02-04] MEDS ORDERED: ISOVUE-370 76% 100ML VIAL As Ordered ONE (23:26)
--- NOTE | 2021-02-04 23:59 | REPVR ---
PROCEDURE INFORMATION: Exam: CT Abdomen And Pelvis With Contrast Exam date and time: 02/04/2021 8:48 PM Age: 45 years old Clinical indication: Abdominal pain; Epigastric; Additional info: Epigastric, luq pain TECHNIQUE: Imaging protocol: Computed tomography of the abdomen and pelvis with contrast. Radiation optimization: All CT scans at this facility use at least one of these dose optimization techniques: automated exposure control; mA and/or kV adjustment per patient size (includes targeted exams where dose is matched to clinical indication); or iterative reconstruction. Contrast material: ISO; Contrast volume: 100 ml; Contrast route: INTRAVENOUS (IV); Other contrast: Oral, ggraphin, 100; COMPARISON: CT ABD/PEL W/IV ORAL CONTRAS 08/23/2020 6:30 PM FINDINGS: Lungs: Minimal bilateral lower lobe dependent atelectasis. Liver: Normal. No mass. Gallbladder and bile ducts: Normal. No calcified stones. No ductal dilation. Pancreas: Normal. No ductal dilation. Spleen: Normal. No splenomegaly. Adrenal glands: Normal. No mass. Kidneys and ureters: Normal. No hydronephrosis. Stomach and bowel: There has been gastric bypass with collapse of the bypassed stomach. Appendix: A normal appendix is seen. Intraperitoneal space: Elongated sigmoid which extends cephalad into the left mid abdomen. Vasculature: Unremarkable. No abdominal aortic aneurysm. Lymph nodes: Unremarkable. No enlarged lymph nodes. Urinary bladder: Unremarkable as visualized. Reproductive: Unremarkable as visualized. Bones/joints: Unremarkable. No acute fracture. Soft tissues: Small fat filled umbilical hernia. IMPRESSION: 1. There has been little change from 08/23/2020. No acute interval process is identified. 2. Status post gastric bypass. Electronically signed by: Yrn Arvizu On 02/04/2021 23:59:16 PM
[2021-02-05 00:30] VITALS: BP 126/76
--- NOTE | 2021-02-05 19:05 | ECGEPIP ---
[facility] - ED Test Date: 2021-02-04 Pat Name: PRIYA WATSON Department: Room: - Gender: Female Door Paneler: anaya : 1975 Requested By: ASHLYN Mccarty Order Number: [id number] Reading MD: Mague Sorensen Measurements Intervals [place] Rate: 67 P: 44 NM: 134 QRS: 23 QRSD: 96 T: 32 QT: 418 QTc: 441 Interpretive Statements Normal sinus rhythm Nonspecific ST T wave changes cw 08/23/[address] T wave changes Electronically Signed on 02-05-2021 19:04:37 EDT by Mague Sorensen
== END 2021-02-05 01:02 | disposition home or self-care (01) ==
LOC: M ED 20:08
DX: R10.9 Unspecified abdominal pain (principal); Z98.84 Bariatric surgery status
CPT/HCPCS: 36415; 74177; 80048; 80076; 82550; 82553; 83690; 84484; 85025; 93005; 93041; 96374; 96375; 96376; 99284; C9113; J2270; J2405; Q9963; Q9967

== ENCOUNTER 2021-06-10 20:46 | Emergency (ER) | payer OTHER ==
[~2021-06-10] VITALS: Ht 170.2 cm; Wt 96.4 kg
[~2021-06-10 20:46] MED LIST changes: +PHEN15CA PO
[2021-06-11 01:26] LABS: BASO # 0.1 10^3/uL (0.0-0.2); BASO % 0.7 % (0.0-1.0); EOS # 0.1 10^3/uL (0.0-0.5); EOS % 1.1 % (0.0-3.0); HEMATOCRIT 40.6 % (36.0-47.0); HEMOGLOBIN 12.2 g/dl (12.0-15.5); LYMPH # 2.4 10^3/uL (1.5-5.0); LYMPH % 22.5 % (24.0-44.0); MEAN CORPUSCULAR HEMOGLOBIN 25.9 pg (27.0-33.0); MEAN CORPUSCULAR VOLUME 86.2 fl (80.0-96.0); MONO # 0.6 10^3/uL (0.0-0.8); MONO % 5.4 % (2.0-8.0); NEUTROPHILS # 7.3 10^3/uL (1.5-8.5); PLATELET COUNT, AUTOMATED 362 10^3/uL (150-450); RED BLOOD COUNT 4.71 10^6/uL (4.00-5.40); WHITE BLOOD COUNT 10.5 10^3/uL (4.0-10.0)
[2021-06-11 01:53] LABS: ALBUMIN 4.2 GM/DL (3.2-5.2); ALT/SGPT 19 U/L (12-78); BILIRUBIN,DIRECT < 0.1 MG/DL (0.0-0.2); BILIRUBIN,TOTAL 0.2 MG/DL (0.2-1.0); BLOOD UREA NITROGEN 8 MG/DL (7-18); CALCIUM LEVEL 9.1 MG/DL (8.5-10.1); CARBON DIOXIDE LEVEL 30 MEQ/L (21-32); CHLORIDE LEVEL 111 MEQ/L (98-107); CREATININE FOR GFR 0.62 MG/DL (0.55-1.30); GLOMERULAR FILTRATION RATE > 60.0 (>58); GLUCOSE, FASTING 102 MG/DL (70-100); LIPASE 93 U/L (73-393); POTASSIUM SERUM 4.1 MEQ/L (3.5-5.1); SODIUM LEVEL 144 MEQ/L (136-145); TOTAL PROTEIN 8.3 GM/DL (6.4-8.2)
[2021-06-11] MEDS ORDERED: ISOVUE-370 76% 100ML VIAL As Ordered ONE (03:29)
[2021-06-11] MEDS: GASTROGRAFIN SOLUTION 30ML PO SCH ×2 (04:06→04:36)
[2021-06-11] MEDS ORDERED: PANTOPRAZOLE 40MG VIAL (C9113 PER 1) IV ONE (04:25)
--- NOTE | 2021-06-11 07:01 | REPVR ---
PROCEDURE INFORMATION: Exam: CT Abdomen And Pelvis With Contrast Exam date and time: 06/11/2021 5:31 AM Age: 45 years old Clinical indication: Abdominal pain; Generalized; Additional info: R/O marni-en-y perforation TECHNIQUE: Imaging protocol: Computed tomography of the abdomen and pelvis with contrast. Radiation optimization: All CT scans at this facility use at least one of these dose optimization techniques: automated exposure control; mA and/or kV adjustment per patient size (includes targeted exams where dose is matched to clinical indication); or iterative reconstruction. Contrast material: ISOVUE 370; Contrast volume: 100 ml; Contrast route: INTRAVENOUS (IV); COMPARISON: CT ABD/PEL W/IV ORAL CONTRAS 02/04/2021 11:29 PM FINDINGS: The examination performed is mildly degraded by motion artifact. Inferior thorax: Interstitial prominence, chronic granulomatous disease, and asymmetric bibasilar airspace disease. Mild wall thickening in the visualized distal esophagus. Liver: No focal hepatic mass. Gallbladder and bile ducts: No cholelithiasis or biliary ductal dilatation. Pancreas: No pancreatic mass or ductal dilatation. Spleen: No splenomegaly. Adrenal glands: Unremarkable adrenals. Kidneys and ureters: Normal renal morphology. No hydronephrosis. Stomach and bowel: Status post marni-en-y. Mild jejunal dilatation wall thickening without high-grade obstruction. Colonic dilatation and prominent stool. Appendix: Nonvisualization of the appendix. Intraperitoneal space: No significant free fluid. Vasculature: Normal caliber of the abdominal aorta. Lymph nodes: No pathologically enlarged lymph nodes. Urinary bladder: Normal bladder morphology. Reproductive: Unremarkable as visualized. Bones/joints: Disc bulging and mild degenerative change. Soft tissues: Small fat containing umbilical hernia. IMPRESSION: 1. Mild jejunal dilatation wall thickening without high-grade obstruction. 2. Asymmetric bibasilar airspace disease, left greater than right. A 3. dditional findings as described above. Electronically signed by: Cameron Chanel On 06/11/2021 07:00:29 AM
[2021-06-11] MEDS ORDERED: PROT1TAB2 PO (07:05)
[2021-06-11 07:15] VITALS: BP 135/76
--- NOTE | 2021-06-11 08:01 | ECGEPIP ---
[facility] - ED Test Date: 2021-06-11 Pat Name: PRIYA WATSON Department: Room: - Gender: Female Punchboard Stuffer: Willie GALEANA : 1975 Requested By: Ever Parkinson Order Number: [id number] Reading MD: Ever Devine Measurements Intervals [place] Rate: 67 P: 53 MN: 128 QRS: 15 QRSD: 94 T: 23 QT: 412 QTc: 435 Interpretive Statements Normal sinus rhythm Nonspecific ST abnormality SIMILAR TO 02/04/21 Electronically Signed on 06-11-2021 8:01:26 EDT by Ever Devine
--- NOTE | 2021-06-12 06:10 | ED PDOC ---
Post-Departure Follow-Up ct abd/p faxed to dr chung for fu Mague Lezama MD Jun 12, 2021 06:09
== END 2021-06-11 07:22 | disposition home or self-care (01) ==
LOC: M ED 20:46
DX: K29.70 Gastritis, unspecified, without bleeding (principal); K52.9 Noninfective gastroenteritis and colitis, unspecified; D50.9 Iron deficiency anemia, unspecified; Z98.84 Bariatric surgery status; Z79.899 Other long term (current) drug therapy
CPT/HCPCS: 74177; 80048; 80076; 81001; 83690; 85025; 93005; 96374; 99284; C9113; Q9963; Q9967

== ENCOUNTER 2021-10-07 09:59 | Inpatient (IN) | payer OTHER ==
[~2021-10-07] VITALS: Ht 170.2 cm; Wt 94.0 kg
[~2021-10-07 09:59] MED LIST changes: +PROT1TAB2 PO
[2021-10-07 10:48] LABS: BASO % 0.2 % (0.0-1.0); HEMATOCRIT 39.2 % (36.0-47.0); HEMOGLOBIN 11.5 g/dl (12.0-15.5); LYMPH # 0.8 10^3/uL (1.5-5.0); LYMPH % 8.7 % (24.0-44.0); MEAN CORPUSCULAR HEMOGLOBIN 23.1 pg (27.0-33.0); MEAN CORPUSCULAR HGB CONC 29.3 g/dl (32.0-36.5); MEAN CORPUSCULAR VOLUME 78.9 fl (80.0-96.0); MONO # 0.5 10^3/uL (0.0-0.8); MONO % 4.9 % (2.0-8.0); NEUTROPHILS # 8.3 10^3/uL (1.5-8.5); NEUTROPHILS % 85.5 % (36.0-66.0); PLATELET COUNT, AUTOMATED 365 10^3/uL (150-450); RED BLOOD COUNT 4.97 10^6/uL (4.00-5.40); WHITE BLOOD COUNT 9.7 10^3/uL (4.0-10.0)
--- OUTSIDE RECORDS SUMMARY | 2021-10-07 10:50 | CCD | Continuity of Care Document ---
Author Author Tabitha DAWSON NP Organization Unknown Address [address] [place] [address] Phone [phone] Care Team Providers Care Openstack Cloud Consulting Architect Name Role Phone Donell Day DO AUTM [phone] Problems Active Problems Provider Date Hypopituitarism Libertad Wheeler MD Onset: 09/11/2019 Social History Type Date Description Comments Sex Unknown ETOH Use Rarely consumes alcohol Tobacco Use Start: Unknown Denies Smoking Smoking Status Reviewed: 01/11/21 Denies Smoking Allergies and adverse reactions Description No Known Drug Allergies Medications Active Medications SIG Qnty Indications Ordering Provide r Date Desmopressin Acetate 0.1mg Tablets take 1 tablet by mouth 4 times a day 120tabs Gail Dawson NP 12/16/2020 Metformin HCL ER 500mg Tablets ER 24HR take two tablets by mouth twice a day 120tabs E66.09 Gail Dawson NP 04/13/2020 Iron (Ferrous Sulfate) 325(65Fe) mg Tablets 1 tablet by mouth twice daily Unknown Vitamin C 500mg Capsules 2 ev yelitza day Unknown Immunizations Description No Information Available Vital Signs Date Vital Result Comment 08/04/2021 11:21am BP Systolic 128 mmHg BP Diastolic 80 mmHg Heart Rate 54 /min Height 66.5 inches 5'6.50" Weight 218.44 lb BMI (Body Mass Index) 34.7 kg/m2 O2 % BldC Oximetry 98 % 03/29/2021 8:50am BP Systolic 124 mmHg BP Diastolic 70 mmHg Heart Rate 71 /min Body Temperature 97.5 F Height 66.5 inches 5'6.50" Weight 213.38 lb BMI (Body Mass Index) 33.9 kg/m2 O2 % BldC Oximetry 98 % Results Description No Information Available Procedures Date Code Description Status 08/04/2021 43216 Office/Outpatient Established Mo d MDM 30-39 Min Completed 03/29/2021 32104 Office/Outpatient Established Mi nimal Problem(S) Completed 02/21/2021 80331 Office/Outpatient Established Mi nimal Problem(S) Completed Medical Devices Description No Information Available Encounters Type Date Location Provider Dx Diagnosis Office Visit 08/04/2021 11:30a DR. 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 Libertad Wheeler End[facility] Nurses E66.09 Other obesity due to excess calories Office Visit 02/21/2021 9:00a DR. Libertad Wheeler [facility] E66.09 Other obesity due to excess calories Assessments Date Code Description Provider 08/04/2021 E27.8 Other specified disorders of adr enal gland Gail Dawson, BRIDGER 08/04/2021 E03.9 Hypothyroidism, unspecified Mal Dawson, BRIDGER 08/04/2021 E66.09 Other obesity due to excess papito kailey Gail Dawson NP 08/04/2021 E23.0 Hypopituitarism Gail garcia, AIRPORT TRAFFIC CONTROLLER 03/29/2021 E66.09 Other obesity due to excess papito kaileykari Wheeler MD 03/29/2021 E66.09 Other obesity due to excess papito kailey Endo Nurses 02/21/2021 E66.09 Other obesity due to excess papito kailey Libertad Wheeler MD 02/21/2021 E66.09 Other obesity due to excess papito kailey Endo Nurses Plan of Treatment Future Appointment(s):* 02/01/2022 9:00 am - Gail Dawson NP at DR. 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 Refilled as 0.2mg, but after reviewing with Dr. Wheeler her electrolytes are normal on 0.1 mg qid-- would not increase dose or she will retain excess water. Labs done 11/18/2020- Midnight salivary cortisol = 0.203 ( elevated )Midnight salivary cortisol = 0.0.98 ( minimally elevated ) Labs done 12/27/20- Scr= 0.71, GFR= >60, NA+= 142, K+= 3.9Urine osmo= 574, urine NA= 36Discussed with Dr. Wheeler- at this time will continue DDAVP 0.1mg QID. Electrolytes are normal on lower dosing and urine osm are not dilute c/w with adequate dosing. Labs done 07/15/21- Na+= 145, K+= 3.9, Scr= 0.72, GFR= >60 Pt states still having increased thirst and urination. Electrolytes normalWill continue same. * Follow up:* RTO 6 months JL * E03.9 Hypothyroidism, unspecified* New Labs:* T4 Free Thyroxine Mass/Vol, Scheduled: 01/09/22 * Comments:* FreeT4 and TT3 are lower end of normal. TSH is only minimally elevated. Minimal goiter on exam. Repeat labs November 2019, TSH = 4.8, free T4 = 0.7, total T3 = 72.May have dysfunctional TSH. 05/31/2020- TSH= 3.170, FT4= 0.79, TT3= 67.1 - normal Labs done 07/15/21- TSH= 3.230, FT4= 0.90 Will recheck FT4 prior to next appt. * E66.09 Other obesity due to excess calories* Comments:* She is of [place] descent. She underwent gastric bypass. Previously had an elevated insulin level. Previous intolerance to Metformin, due to GI distress. Dr. Wheeler discussed that she should eat smaller meals and restrict starches. Consider other insulin sensitizers in the future. She had subtle acanthosis nigricans over the back of her neckWas given Phentermine in December 2019, but never came in for Nurse visits for BP and wt check. Pt took Phentermine for only 30 days in December. However script was written for 90 days, but pt states only received 30 days. Taking Metformin ER 500mg 4 tabs dailyPt states has been working with water trainer once weekly. Continue same. 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 What is more interesting is that the patient has weaned herself off of hydrocortisone and as of an endocrine note 2016 she was only taking 5 mg of hydrocortisone. She also self weaned from thyroid hormone. She may have had some bleeding and swelling of the posterior pituitary which transiently affected the anterior pituitary. She has a history of normal menstrual cycles.09/2019: TSH = 4.9, free T4 = 0.78, TT 3 = 79Cortisol = 7.4, prolactin = 11.7, IGF-I = 115ACTH = 19, urine cortisol = 254 (elevated)She appears to have intact pituitary function at this point in time. May remain off of hydrocortisone Functional Status Description No Information Available Mental Status Description No Information Available Referrals Refer to Reason for Referral Status Appt Date Libertad Wheeler MD adrenal Created [address] [facility] [facility] [address], [address] [place] [address] [phone]
--- OUTSIDE RECORDS SUMMARY | 2021-10-07 10:50 | CCD | Continuity of Care Document ---
Author Author Tabitha DAWSON NP Organization Unknown Address [address] [place] [address] Phone [phone] Care Team Providers Care Automotive Machinist Apprentice Name Role Phone Donell Day DO AUTM [phone] Problems Active Problems Provider Date Hypopituitarism Libertad Wheeler MD Onset: 09/11/2019 Social History Type Date Description Comments Sex Unknown ETOH Use Rarely consumes alcohol Tobacco Use Start: Unknown Denies Smoking Smoking Status Reviewed: 01/11/21 Denies Smoking Allergies, Adverse Reactions, Alerts Description No Known Drug Allergies Medications Active [...] Available Procedures Date Code Description Status 08/04/2021 54198 Office/Outpatient Established Mo d MDM 30-39 Min Completed 03/29/2021 84303 Office/Outpatient Established Mi nimal Problem(S) Completed 02/21/2021 97899 Office/Outpatient Established Mi nimal Problem(S) Completed Medical [...] obesity due to excess papito kailey Gail Dawson, BRIDGER 08/04/2021 E23.0 Hypopituitarism Gail garcia, SLOTS MANAGER 03/29/2021 E66.09 Other obesity due to excess papito kailey Wheeler MD 03/29/2021 E66.09 Other obesity due [...] to excess calories* Comments:* She is of [place] descent. She underwent gastric bypass. Previously had [...] tabs dailyPt states has been working with field trainer once weekly. Continue same. * E23.0 [...] Appt Date Libertad Wheeler MD adrenal Created [address] [facility], [address] [place] [address] [phone]
--- OUTSIDE RECORDS SUMMARY | 2021-10-07 10:51 | CCD ---
Author Author [facility] Organization [facility] Address Unknown Phone Unavailable Care Team Providers Care Heel Seat Laster Name Role Phone SAMIR, B ALEXSANDER TIMBER ROBBER Unavailable Unavailable SAMIR, B ALEXSANDER TIMBER ROBBER Unavailable Unavailable SAMIR, B ALEXSANDER TIMBER ROBBER Unavailable Unavailable SAMIR, B ALEXSANDER TIMBER ROBBER Unavailable Unavailable SAMIR, B ALEXSANDER TIMBER ROBBER Unavailable Unavailable SAMIR, B ALEXSANDER TIMBER ROBBER Unavailable Unavailable SAMIR, B ALEXSANDER TIMBER ROBBER Unavailable Unavailable SAMIR, B ALEXSANDER TIMBER ROBBER Unavailable Unavailable SAMIR, B ALEXSANDER TIMBER ROBBER Unavailable Unavailable SAMIR, B ALEXSANDER TIMBER ROBBER Unavailable Unavailable SAMIR, B ALEXSANDER TIMBER ROBBER Unavailable Unavailable SAMIR, B ALEXSANDER TIMBER ROBBER Unavailable Unavailable SAMIR, B ALEXSANDER TIMBER ROBBER Unavailable Unavailable SAMIR, B ALEXSANDER TIMBER ROBBER Unavailable Unavailable SAMIR, B ALEXSANDER TIMBER ROBBER Unavailable Unavailable SAMIR, B ALEXSANDER TIMBER ROBBER Unavailable Unavailable SAMIR, B ALEXSANDER TIMBER ROBBER Unavailable Unavailable SAMIR, B ALEXSANDER TIMBER ROBBER Unavailable Unavailable SAMIR, B ALEXSANDER TIMBER ROBBER Unavailable Unavailable SAMIR, B ALEXSANDER TIMBER ROBBER Unavailable Unavailable SAMIR, B ALEXSANDER TIMBER ROBBER Unavailable Unavailable SAMIR, B ALEXSANDER TIMBER ROBBER Unavailable Unavailable SAMIR, B ALEXSANDER TIMBER ROBBER Unavailable Unavailable SAMIR, B ALEXSANDER TIMBER ROBBER Unavailable Unavailable SAMIR, B ALEXSANDER TIMBER ROBBER Unavailable Unavailable SAMIR, B ALEXSANDER TIMBER ROBBER Unavailable Unavailable SAMIR, B ALEXSANDER TIMBER ROBBER Unavailable Unavailable SAMIR, B ALEXSANDER TIMBER ROBBER Unavailable Unavailable SAMIR, B ALEXSANDER TIMBER ROBBER Unavailable Unavailable SAMIR, B ALEXSANDER TIMBER ROBBER Unavailable Unavailable SAMIR, B ALEXSANDER TIMBER ROBBER Unavailable Unavailable SAMIR, B ALEXSANDER TIMBER ROBBER Unavailable Unavailable SAMIR, B ALEXSANDER TIMBER ROBBER Unavailable Unavailable SAMIR, B ALEXSANDER TIMBER ROBBER Unavailable Unavailable SAMIR, B ALEXSANDER TIMBER ROBBER Unavailable Unavailable SAMIR, B ALEXSANDER TIMBER ROBBER Unavailable Unavailable SAMIR, B ALEXSANDER TIMBER ROBBER Unavailable Unavailable SAMIR, B ALEXSANDER TIMBER ROBBER Unavailable Unavailable SAMIR, B ALEXSANDER TIMBER ROBBER Unavailable Unavailable SAMIR, B ALEXSANDER TIMBER ROBBER Unavailable Unavailable SAMIR, B ALEXSANDER TIMBER ROBBER Unavailable Unavailable SAMIR, B ALEXSANDER TIMBER ROBBER Unavailable Unavailable SAMIR, B ALEXSANDER TIMBER ROBBER Unavailable Unavailable SAMIR, B ALEXSANDER TIMBER ROBBER Unavailable Unavailable SAMIR, B ALEXSANDER TIMBER ROBBER Unavailable Unavailable SAMIR, B ALEXSANDER TIMBER ROBBER Unavailable Unavailable SAMIR, B ALEXSANDER TIMBER ROBBER Unavailable Unavailable SAMIR, B ALEXSANDER TIMBER ROBBER Unavailable Unavailable SAMIR, B ALEXSANDER TIMBER ROBBER Unavailable Unavailable SAMIR, B ALEXSANDER TIMBER ROBBER Unavailable Unavailable SAMIR, B ALEXSANDER TIMBER ROBBER Unavailable Unavailable SAMIR, B ALEXSANDER TIMBER ROBBER Unavailable Unavailable SAMIR, B ALEXSANDER TIMBER ROBBER Unavailable Unavailable SAMIR, B ALEXSANDER TIMBER ROBBER Unavailable Unavailable SAMIR, B ALEXSANDER TIMBER ROBBER Unavailable Unavailable SAMIR, B ALEXSANDER TIMBER ROBBER Unavailable Unavailable SAMIR, B ALEXSANDER TIMBER ROBBER Unavailable Unavailable SAMIR, B ALEXSANDER TIMBER ROBBER Unavailable Unavailable SAMIR, B ALEXSANDER TIMBER ROBBER Unavailable Unavailable SAMIR, B ALEXSANDER TIMBER ROBBER Unavailable Unavailable SAMIR, B ALEXSANDER TIMBER ROBBER Unavailable Unavailable SAMIR, B ALEXSANDER TIMBER ROBBER Unavailable Unavailable [id number], NA Unavailable [phone] Teresa Bañuelos, Leanne Hammonds MD, FACS Unavailable Unavailable Moore Bañuelos, Leanne Hammonds MD, FACS Unavailable Unavailable Moore Bañuelos, Leanne Hammonds MD, FACS Unavailable Unavailable Moore Bañuelos, Leanne Hammonds MD, FACS Unavailable Unavailable Moore Bañuelos, Leanne Hammonds MD, FACS Unavailable Unavailable Moore Bañuelos, Leanne Hammonds MD, FACS Unavailable Unavailable Moore Bañuelos, Leanne Hammonds MD, FACS Unavailable Unavailable Moore Bañuelos, Leanne Hammonds MD, FACS Unavailable Unavailable Moore Bañuelos, Leanne Hammonds MD, FACS Unavailable Unavailable Moore Bañuelos, Leanne Hammonds MD, FACS Unavailable Unavailable Moore Bañuelos, Leanne Hammonds MD, FACS Unavailable Unavailable Moore Bañuelos, Leanne Hammonds MD, FACS Unavailable Unavailable Moore Bañuelos, Leanne Hammonds MD, FACS Unavailable Unavailable Moore Bañuelos, Leanne Hammonds MD, FACS Unavailable Unavailable Moore Bañuelos, Leanne Hammonds MD, FACS Unavailable Unavailable Moore Bañuelos, Leanne Hammonds MD, FACS Unavailable Unavailable Moore Bañuelos, Leanne Hammonds MD, FACS Unavailable Unavailable Moore Bañuelos, Leanne Hammonds MD, FACS Unavailable Unavailable Moore Bañuelos, Leanne Hammonds MD, FACS Unavailable Unavailable Moore Bañuelos, Leanne Hammonds MD, FACS Unavailable Unavailable Moore Bañuelos, Leanne Hammonds MD, FACS Unavailable Unavailable Moore Bañuelos, Leanne Hammonds MD, FACS Unavailable Unavailable Moore Bañuelos, Leanne Hammonds MD, FACS Unavailable Unavailable Moore Bañuelos, Leanne Hammonds MD, FACS Unavailable Unavailable Moore Bañuelos, Leanne Hammonds MD, FACS Unavailable Unavailable Moore Bañuelos, Leanne Hammodns MD, FACS Unavailable Unavailable Moore Bañuelos, Leanne Hammonds MD, FACS Unavailable Unavailable Moore Bañuelos, Leanne Hammonds MD, FACS Unavailable Unavailable Moore Bañuelos, Leanne Hammonds MD, FACS Unavailable Unavailable Moore Bañuelos, Leanne Hammonds MD, FACS Unavailable Unavailable Moore Bañuelos, Leanne Hammonds MD, FACS Unavailable Unavailable Moore Bañuelos, Leanne Hammonds MD, FACS Unavailable Unavailable Moore Bañuelos, Leanne Hammonds MD, FACS Unavailable Unavailable Moore Bañuelos, Leanne Hammonds MD, FACS Unavailable Unavailable Moore Bañuelos, Leanne Hammonds MD, FACS Unavailable Unavailable Moore Bañuelos, Leanne Hammonds MD, FACS Unavailable Unavailable Moore Bañuelos, Leanne Hammonds MD, FACS Unavailable Unavailable Moore Bañuelos, Leanne Hammonds MD, FACS Unavailable Unavailable Moore Bañuelos, Leanne Hammonds MD, FACS Unavailable Unavailable Re-disclosure Warning The records that you are about to access may contain information from federally-assisted alcohol or drug abuse programs. If such information is present, then the following federally mandated warning applies: This information has been disclosed to you from records protected by federal confidentiality rules (42 CFR part 2). The federal rules prohibit you from making any further disclosure of this information unless further disclosure is expressly permitted by the written consent of the person to whom it pertains or as otherwise permitted by 42 CFR part 2. A general authorization for the release of medical or other information is NOT sufficient for this purpose. The Federal rules restrict any use of the information to criminally investigate or prosecute any alcohol or drug abuse patient.The records that you are about to access may contain highly sensitive health information, the redisclosure of which is protected by Article 27-F of the [facility] Public Health law. If you continue you may have access to information: Regarding HIV / AIDS; Provided by facilities licensed or operated by the [facility] Office of Mental Health; or Provided by the [facility] Office for People With Developmental Disabilities. If such information is present, then the following [facility] mandated warning applies: This information has been disclosed to you from confidential records which are protected by state law. State law prohibits you from making any further disclosure of this information without the specific written consent of the person to whom it pertains, or as otherwise permitted by law. Any unauthorized further disclosure in violation of state law may result in a fine or senior care sentence or both. A general authorization for the release of medical or other information is NOT sufficient authorization for further disc losure. Allergies and Adverse Reactions Type Description Substance Reaction Status Data Source(s ) Allergy to substance No Known Allergies No known allergies (situation ) PAM (Cassius Bañuelos MD [facility]) Encounters Encounter Providers Location Date Indications Data Source(s ) Outpatient Attender: ALEXSANDER DAWSON NP Physical Therapy 11:30:00 AM EDT [facility] ([facility]) Outpatient Attender: JERALD [id number] Physical Therapy 03/29/2021 09 :00:00 AM EDT [facility] ([facility]) Outpatient Attender: NA [id number] Physical Therapy 02/21/2021 09 :00:00 AM EDT [facility] ([facility]) Outpatient Attender: ALEXSANDER DAWSON NP Physical Therapy 10:45:00 AM EST [facility] ([facility]) Outpatient<td ID="encounterTypeDescripti onID0">[facility] NEW PT NON URGENT</td><td>Cassius Lala MD, FACS</td><td>Cassius Lala MD [facility]</td><td>12/23/2020</td><td>12:34PM</td><td>1:49PM</td><td><content ID="encounterDiagnosisID0-0">Dry Eye Syndrome Both Eyes</content>, <content ID="encounterDiagnosisID0-1">Diabetes Mellitus Type 2 Without Complication</content>, <content ID="encounterDiagnosisID0-2">Pituitary Macroadenoma</content></td> Attender: Cassius Bañuelos MD, FACS Cassius Lala MD [facility] 12/23/2020 12:34:00 PM EST - 12/23/2020 01:49:00 PM ES T Pituitary MacroadenomaDiabetes Mellitus Type 2 Without ComplicationDry Eye Syndrome Both Eyes PAM (Cassius Bañuelos MD [facility]) Pituitary Macroadenoma Diabetes Mellitus Type 2 Without Complic ation Dry Eye Syndrome Both Eyes Outpatient Attender: ALEXSANDER DAWSON NP Physical Therapy 08:15:00 AM EST [facility] ([facility]) Medications Medication Brand Name Start Date Product Form Dose Route Admi nistrative Instructions Pharmacy Instructions Status Indications Reaction Description Data Source(s) Phentermine Hydrochloride 15 MG Oral Capsule Phentermine HCL 01/17/2021 12:00:00 AM EDT ORAL active [facility] ([facility]) Desmopressin Acetate 0.2 MG Oral Tablet Desmopressin Acetate 0.2 MG Oral Tablet 12/23/2020 12:00:00 AM EST active desmopressin acetate 0.2 MG Oral Tablet PAM (Cassius Bañuelos MD [facility]) Desmopressin Acetate 0.1 MG Oral Tablet Desmopressin Acetate 12/16/2020 12:00:00 AM EST ORAL active [facility] ([facility] Desmopressin Acetate 0.2 MG Oral Tablet Desmopressin Acetate 11/23/2020 12:00:00 AM EST ORAL completed [facility] ([facility] ) Insurance Providers Payer name Policy type / Coverage type Policy ID Covered green party ID Covered green party's relationship to simms Policy Simms Plan Information [facility] [id number] [facility] [id number] Problems, Conditions, and Diagnoses Code Display Name Description Problem Type Effective Dates Data Source(s) 25334471 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 Problem 12/23/2020 12:00:00 AM EST PAM (Cassius Bañuelos MD [facility]) 250.00 Diabetes Mellitus Type 2 Without Complic ation Diabetes Mellitus Type 2 Without Complication Problem 12/23/2020 12:00:00 AM EST PAM (Abrahan Bañuelos MD [facility]) [id number] Pituitary macroadenoma (disorder) Pituitary Macroadeno ma Problem 12/23/2020 12:00:00 AM EST PAM (Cassius Bañuelos MD [facility]) Surgeries/Procedures Procedure Description Date Indications Data Source(s) OFFICE OUTPATIENT VISIT 25 MINUTES 08/04/2021 12:00:00 AM EDT [facility] ([facility]) OFFICE OUTPATIENT VISIT 5 MINUTES 03/29/2021 12:00:00 AM EDT [facility] ([facility] ) OFFICE OUTPATIENT VISIT 5 MINUTES 02/21/2021 12:00:00 AM EDT [facility] ([facility] ) No surgical / procedural history No surgical / procedural hi story 12/23/2020 12:00:00 AM EST PAM (Cassius Bañuelos MD [facility]) Visual Field 120 Visual Field 120 12/23/2020 12:00:00 AM EST PAM (Cassius Bañuelos MD [facility]) Comprehensive Eye Exam (Signi/Sep Eval. & Man.) Compre hensive Eye Exam (Signi/Sep Eval. & Man.) 12/23/2020 12:00:00 AM EST PAM (Cassius Bañuelos MD [facility]) Results No Information Social History Code Duration Value Status Description Data Source(s ) Smoking 03/03/2021 07:49:13 AM EDT Never smoked tobacco (findi ng) completed Never smoked tobacco (finding) PAM (Cassius Bañuelos MD [facility]) Vital Signs ID Date Data Source UNK Name Value Range Interpretation Code Description Data Source(s) Body height 66.5 [in_i] 66.5 [in_i] [facility] ([facility] ) 5'6.50" Oxygen saturation in Arterial blood by Pulse oximetry 98 % 98 % [facility] ([facility] ) Body weight 218.44 [lb_av] 218.44 [lb_av] [facility] T ([facility]) Body mass index (BMI) [Ratio] 34.7 kg/m2 34.7 k g/m2 [facility] ([facility] ) Systolic blood pressure 128 mm[Hg] 128 mm[Hg] M EDENT ([facility] ) Diastolic blood pressure 80 mm[Hg] 80 mm[Hg] [facility] ([facility] ) Heart rate 54 /min 54 /min [facility] ([facility] ) Systolic blood pressure 124 mm[Hg] 124 mm[Hg] M EDENT ([facility] ) Diastolic blood pressure 70 mm[Hg] 70 mm[Hg] [facility] ([facility] ) Heart rate 71 /min 71 /min [facility] ([facility] ) Body temperature 97.5 [degF] 97.5 [degF] [facility] ([facility] ) Body height 66.5 [in_i] 66.5 [in_i] [facility] ([facility] ) 5'6.50" Body weight 213.38 [lb_av] 213.38 [lb_av] [facility] T ([facility] ) Body mass index (BMI) [Ratio] 33.9 kg/m2 33.9 k g/m2 [facility] ([facility]) Oxygen saturation in Arterial blood by Pulse oximetry 98 % 98 % [facility] ([facility]) Diastolic blood pressure 80 mm[Hg] 80 mm[Hg] [facility] ([facility]) Heart rate 68 /min 68 /min [facility] ([facility]) Body temperature 96.6 [degF] 96.6 [degF] [facility] ([facility]) Body height 66.5 [in_i] 66.5 [in_i] [facility] ([facility]) 5'6.50" Body weight 206.44 [lb_av] 206.44 [lb_av] [facility] T ([facility]) Body mass index (BMI) [Ratio] 32.8 kg/m2 32.8 k g/m2 [facility] ([facility] ) Oxygen saturation in Arterial blood by Pulse oximetry 98 % 98 % [facility] ([facility]) Systolic blood pressure 118 mm[Hg] 118 mm[Hg] M EDENT ([facility]) Systolic blood pressure 128 mm[Hg] 128 mm[Hg] M [facility]ENT ([facility]) Body mass index (BMI) [Ratio] 33.4 kg/m2 33.4 k g/m2 [facility] ([facility]) Oxygen saturation in Arterial blood by Pulse oximetry 98 % 98 % [facility] ([facility]) Diastolic blood pressure 84 mm[Hg] 84 mm[Hg] [facility] ([facility]) Heart rate 64 /min 64 /min [facility] ([facility]) Body temperature 97.5 [degF] 97.5 [degF] [facility] ([facility]) Body height 66.5 [in_i] 66.5 [in_i] [facility] ([facility]) 5'6.50" Body weight 210.00 [lb_av] 210.00 [lb_av] [facility] T ([facility])
[2021-10-07] MEDS ORDERED: dexameTHASONE 4 MG/ML 1ML VIAL (J1100 PER 1MG) IV ONE (11:00)
[2021-10-07] MEDS: COMBIVENT RESPIMAT 100-20MCG INHALER 4GM INH SCH ×2 (11:06→11:27)
[2021-10-07 11:10] LABS: ALBUMIN 2.9 GM/DL (3.2-5.2); ALT/SGPT 15 U/L (12-78); BILIRUBIN,DIRECT 0.1 MG/DL (0.0-0.2); BILIRUBIN,TOTAL 0.3 MG/DL (0.2-1.0); BLOOD UREA NITROGEN 14 MG/DL (7-18); CALCIUM LEVEL 8.1 MG/DL (8.5-10.1); CARBON DIOXIDE LEVEL 29 MEQ/L (21-32); CHLORIDE LEVEL 103 MEQ/L (98-107); CREATININE FOR GFR 0.66 MG/DL (0.55-1.30); GLOMERULAR FILTRATION RATE > 60.0 (>58); GLUCOSE, FASTING 108 MG/DL (70-100); LIPASE 66 U/L (73-393); POTASSIUM SERUM 3.9 MEQ/L (3.5-5.1); SODIUM LEVEL 140 MEQ/L (136-145); TOTAL PROTEIN 7.6 GM/DL (6.4-8.2)
[2021-10-07 11:20] LABS: RSV AMPLIFICATION NEGATIVE (NEGATIVE)
--- NOTE | 2021-10-07 11:28 | REP ---
INDICATION: cough, pending poc hcg. COMPARISON: 08/23/2020. TECHNIQUE: Single portable AP view of the chest was performed. FINDINGS: There are bibasilar infiltrates. The heart and mediastinum are unremarkable. The visualized osseous structures are intact. IMPRESSION: Bibasilar infiltrates. <Electronically signed by Mateusz Toscano > 10/07/21 1121
[2021-10-07] MEDS ORDERED: FERR325T3 PO (11:37)
[2021-10-07] MEDS ORDERED: VITA500C24 PO (11:37)
[2021-10-07] MEDS ORDERED: HOME MED LIST COMPLETE! XX SCH (11:40)
[2021-10-07 11:41] LABS: ABG BASE EXCESS 0.6 (-2.0-2.0); ABG HCO3 23.5 MEQ/L (22.0-26.0); ABG O2 SATURATION 92.5 % (95.0-99.0); ABG PARTIAL PRESSURE CO2 31.9 mmHg (35.0-45.0); ABG PARTIAL PRESSURE O2 65.7 mmHg (75.0-100.0); ABG STANDARD HCO3 24.9 MEQ/L (22.0-26.0); ABG TOTAL CO2 24.5 MEQ/L (22.0-29.0); ABG pH (ARTERIAL) 7.485 UNITS (7.350-7.450)
--- NOTE | 2021-10-07 11:51 | HPEPDOC ---
[facility] Medical History & Physical Date of Admission Oct 07, 2021 Date of Service: Oct 07, 2021 Attending Physician: Cindy Chaudhari MD History and Physical CHIEF COMPLAINT: Increased weakness HISTORY OF PRESENT ILLNESS: Patient is a 46-year-old female with past medical history of pituitary tumor, heavy menses, diabetes mellitus who presented to [facility] emergency room via EMS with a chief complaint of increased weakness, loss of consciousness and concerns for low blood pressure. The patient was awake and alert to give history on examination today. She states symptoms started 09/29/21 and have progressively gotten worse. Patient went to clinic on [address] to be seen by her PCP for her symptoms this AM. There her blood pressure was very low (exact number not known) and she lost consciousness for several minutes. No documented signs of seizures. She was brought to the ER via EMS as there was concern for possible shock? She complains of dizziness, lightheadedness, back pain, body aches, nausea, weakness, lethargy, occasional productive cough of brown color/no overt blood seen, sinus congestion, headache, decreased appetite with last known meal unknown, loss of taste and smell, night sweats. Patient has a heavy menses at baseline, normally lasts 7 days, currently she is on day 2 but bleeding is not more than normal. She has been using tylenol, ibuprofen, Theraflu. She states to be drinking well. No sick contacts. She is not vaccinated for COVID 19 because she was told to not to get vaccinated with tumor. Patient fell 10/06/21 due to weakness. She denies chest pain, fever, abdominal pain, diarrhea, vomiting, palpitations. In ER, patient was afebrile but was 86% on room air. With 2 L nasal cannula she went up to 94%. Blood pressure systolic 112 and the patient was awake alert and oriented. CXR bibasilar infiltrates. ABG showed hypoxia with PaO2 65. Labs were unremarkable. Procalcitonin, BNP were pending. COVID-19 test was positive. Gynecological exam was done in the emergency room, wet prep negative. The patient states to be having her regular menses which is not heavier than normal. The patient admits to not having eaten anything for several days and becoming lightheaded prior to her syncopal episode which lasted several minutes. The patient was ultimately admitted to the hospital for acute hypoxic respiratory failure secondary to COVID-19, rule out superimposed bacterial pneumonia. REVIEW OF SYSTEMS: CONSTITUTIONAL: Denies unexplained weight gain or weight loss, fever EYES: Denies eye drainage, eye pain, visual changes, dry/irritated eye EARS, NOSE, MOUTH, THROAT: Denies difficulty hearing, ringing in ears, mouth sores, loose teeth, sore throat, facial numbness or pain NECK: Denies swollen glands CARDIOVASCULAR: Denies irregular heartbeat, racing heart, chest pains, swelling of feet or legs, pain in legs with walking RESPIRATORY: Denies night sweats, wheezing, oxygen at home, coughing up blood, cough lasting > 1 month GASTROINTESTINAL: Denies abdominal pain, constipation, bloody stool, diarrhea, heartburn GENITOURINARY: Denies painful urination, bloody urine, frequent urination, urgency, leaking urine, impotence MUSCULOSKELETAL: Denies joint pain, muscle pain, leg swelling INTEGUMENTARY: Denies rash, itching, new skin lesion, change in existing skin lesion, hair loss or increase, breast changes. 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 Lives with family locally. ALLERGIES: Please see below. HOME MEDICATIONS: Please see below. PHYSICAL EXAMINATION: VS: 99.1, 86, 111/72, 86% on room air. 92-94% on 2 L nasal cannula. CONSTITUTIONAL: Ill-appearing female, resting in bed, AAO x 3 EYES: PERRLA, EOM intact HENT, MOUTH: Normocephalic, atraumatic, dry mucous membranes NECK: SUPPLE, no JVD, no lymphadenopathy, no carotid bruit CV: Regular rate and rhythm, S1S2 normal, no murmurs/rubs/gallops RESPIRATORY: Clear to auscultation bilaterally, no rales/rhonchi/wheezes GI: BS positive in 4 quadrants, soft, nontender, nondistended, no rebound or guarding, no organomegaly : Deferred MUSCULOSKELETAL: Normal ROM. No cyanosis, clubbing, swelling, joint deformity, extremity edema INTEGUMENTARY: Intact, no rashes, no lesions, no erythema NEUROLOGIC: Cranial Nerves II-XII are intact, no focal deficits PSYCHIATRIC: Mood and affect are normal LABORATORY DATA: Please see below IMAGING: CXR: bibasilar infiltrates ASSESSMENT: 46-year-old female with past medical history of pituitary tumor, heavy menses, diabetes mellitus acute hypoxic respiratory failure secondary to COVID-19, rule out superimposed bacterial pneumonia. PLAN: Acute hypoxic respiratory failure secondary to COVID-19, rule out superimposed bacterial pneumonia -Currently saturating well on 2 L nasal cannula, PaO2 60s -Chest x-ray above -Follow-up procalcitonin, BNP, D-dimer, inflammatory markers -Follow-up sputum culture, blood cultures -Started on doxycycline, ceftriaxone, remdesivir, dexamethasone, albuterol as needed, Mucinex, incentive spirometer, awake pronation, supplemental O2 to keep oxygen levels greater than 88% -Covid labs per protocol -Precautions per protocol Syncope possibly secondary vasovagal episode, ? Orthostatic hypotension -Not suspicious of seizures, currently awake alert oriented x3 -We will monitor closely here on telemetry, orthostatics ordered for when the patient's oxygenation stabilizes -Starting IV fluids with gentle hydration rate, encourage p.o. intake -Holding off on echocardiogram at this time unless BNP is elevated Hx of pituitary gland tumor -Continue home desmopressin Iron deficiency anemia 2/2 to gastric bypass, heavy menses -History of admission for anemia -H/H stable -Ferrous sulfate twice daily -Daily CBC DM type II -Insulin sliding scale, fingerstick AC at bedtime, consistent carbohydrate diet, hypoglycemic protocol DVT prophylaxis -SCD/teds, no anticoagulation while patient is heavy on her menses as this could precipitate more bleeding. Consider starting 40 mg Enoxaparin SC daily if anything. DISPOSITION: Admitted as acute inpatient. Plan is discharge home when medically improved. Vital Signs Vital Signs Date Time Temp Pulse Resp B/P (MAP) Pulse Ox O2 Delivery O2 Flow Rate FiO2 10/07/21 11:31 86 Room Air 10/07/21 11:30 86 111/72 (85) 10/07/21 11:15 99.1 2.0 Laboratory Data Labs 24H Laboratory Tests 2 10/07/21 10:08: Immature Granulocyte % (Auto) 0.7, Neutrophils (%) (Auto) 85.5H, Lymphocytes (%) (Auto) 8.7L, Monocytes (%) (Auto) 4.9, Eosinophils (%) (Auto) 0.0, Basophils (%) (Auto) 0.2, Neutrophils # (Auto) 8.3, Lymphocytes # (Auto) 0.8L, Monocytes # (Auto) 0.5, Eosinophils # (Auto) 0.0, Basophils # (Auto) 0.0, Nucleated Red Blood Cells % (auto) 0.0, Anion Gap 8, Glomerular Filtration Rate > 60.0, Calcium Level 8.1L, Total Bilirubin 0.3, Direct Bilirubin 0.1, Aspartate Amino Transf (AST/SGOT) 21, Alanine Aminotransferase (ALT/SGPT) 15, Alkaline Phosphatase 68, Total Protein 7.6, Albumin 2.9L, Albumin/Globulin Ratio 0.6L, Lipase 66L 10/07/21 10:23: Coronavirus (COVID-19)(PCR) POSITIVEA, Influenza Type A (RT-PCR) NEGATIVE, Influenza Type B (RT-PCR) NEGATIVE, Respiratory Syncytial Virus (PCR) NEGATIVE 10/07/21 10:30: CBC/BMP Laboratory Tests 10/07/21 10:08 Microbiology Microbiology 10/07/21 Wet Prep, Received Pending Home Medications Scheduled Ascorbic Acid (Vitamin C) 500 Mg Capsule, 500 MG PO BID Desmopressin Acetate (Desmopressin Acetate) 0.1 Mg Tablet, 0.1 MG PO TID 0900,1500,2100 Ferrous Sulfate (Ferrous Sulfate) 325 Mg Tablet.dr, 325 MG PO BID Metformin HCl (Metformin HCl ER) 500 Mg Tab.er.24h, 1,000 MG PO BID Multivit-Min/Folic Acid/Biotin (Women Multivit W-Biotin Gummy) 1 Each Tab.chew, 1 TAB PO DAILY Allergies Coded Allergies: No Known Allergies (Unverified , 08/23/20) A-FIB/CHADSVASC A-FIB History Current/History of A-Fib/PAF?: No Current PO Anticoag Therapy: No Cindy Chaudhari MD Oct 07, 2021 11:51
--- OUTSIDE RECORDS SUMMARY | 2021-10-07 12:11 | CCD ---
Author Author [facility] Organization [facility] Address Unknown Phone Unavailable Care Team Providers Care Assistant Finance Manager Name Role Phone SAMIR, B ALEXSANDER SUPERVISOR PLASMA Unavailable Unavailable SAMIR, B ALEXSANDER SUPERVISOR PLASMA Unavailable Unavailable SAMIR, B ALEXSANDER SUPERVISOR PLASMA Unavailable Unavailable SAMIR, B ALEXSANDER SUPERVISOR PLASMA Unavailable Unavailable SAMIR, B ALEXSANDER SUPERVISOR PLASMA Unavailable Unavailable SAMIR, B ALEXSANDER SUPERVISOR PLASMA Unavailable Unavailable SAMIR, B ALEXSANDER SUPERVISOR PLASMA Unavailable Unavailable SAMIR, B ALEXSANDER SUPERVISOR PLASMA Unavailable Unavailable SAMIR, B ALEXSANDER SUPERVISOR PLASMA Unavailable Unavailable SAMIR, B ALEXSANDER SUPERVISOR PLASMA Unavailable Unavailable SAMIR, B ALEXSANDER SUPERVISOR PLASMA Unavailable Unavailable SAMIR, B ALEXSANDER SUPERVISOR PLASMA Unavailable Unavailable SAMIR, B ALEXSANDER SUPERVISOR PLASMA Unavailable Unavailable SAMIR, B ALEXSANDER SUPERVISOR PLASMA Unavailable Unavailable SAMIR, B ALEXSANDER SUPERVISOR PLASMA Unavailable Unavailable SAMIR, B ALEXSANDER SUPERVISOR PLASMA Unavailable Unavailable SAMIR, B ALEXSANDER SUPERVISOR PLASMA Unavailable Unavailable SAMIR, B ALEXSANDER SUPERVISOR PLASMA Unavailable Unavailable SAMIR, B ALEXSANDER SUPERVISOR PLASMA Unavailable Unavailable SAMIR, B ALEXSANDER SUPERVISOR PLASMA Unavailable Unavailable SAMIR, B ALEXSANDER SUPERVISOR PLASMA Unavailable Unavailable SAMIR, B ALEXSANDER SUPERVISOR PLASMA Unavailable Unavailable SAMIR, B ALEXSANDER SUPERVISOR PLASMA Unavailable Unavailable SAMIR, B ALEXSANDER SUPERVISOR PLASMA Unavailable Unavailable SAMIR, B ALEXSANDER SUPERVISOR PLASMA Unavailable Unavailable SAMIR, B ALEXSANDER SUPERVISOR PLASMA Unavailable Unavailable SAMIR, B ALEXSANDER SUPERVISOR PLASMA Unavailable Unavailable SAMIR, B ALEXSANDER SUPERVISOR PLASMA Unavailable Unavailable SAMIR, B ALEXSANDER SUPERVISOR PLASMA Unavailable Unavailable SAMIR, B ALEXSANDER SUPERVISOR PLASMA Unavailable Unavailable SAMIR, B ALEXSANDER SUPERVISOR PLASMA Unavailable Unavailable SAMIR, B ALEXSANDER SUPERVISOR PLASMA Unavailable Unavailable SAMIR, B ALEXSANDER SUPERVISOR PLASMA Unavailable Unavailable SAMIR, B ALEXSANDER SUPERVISOR PLASMA Unavailable Unavailable SAMIR, B ALEXSANDER SUPERVISOR PLASMA Unavailable Unavailable SAMIR, B ALEXSANDER SUPERVISOR PLASMA Unavailable Unavailable SAMIR, B ALEXSANDER SUPERVISOR PLASMA Unavailable Unavailable SAMIR, B ALEXSANDER SUPERVISOR PLASMA Unavailable Unavailable SAMIR, B ALEXSANDER SUPERVISOR PLASMA Unavailable Unavailable SAMIR, B ALEXSANDER SUPERVISOR PLASMA Unavailable Unavailable SAMIR, B ALEXSANDER SUPERVISOR PLASMA Unavailable Unavailable SAMIR, B ALEXSANDER SUPERVISOR PLASMA Unavailable Unavailable SAMIR, B ALEXSANDER SUPERVISOR PLASMA Unavailable Unavailable SAMIR, B ALEXSANDER SUPERVISOR PLASMA Unavailable Unavailable SAMIR, B ALEXSANDER SUPERVISOR PLASMA Unavailable Unavailable SAMIR, B ALEXSANDER SUPERVISOR PLASMA Unavailable Unavailable SAMIR, B ALEXSANDER SUPERVISOR PLASMA Unavailable Unavailable SAMIR, B ALEXSANDER SUPERVISOR PLASMA Unavailable Unavailable SAMIR, B ALEXSANDER SUPERVISOR PLASMA Unavailable Unavailable SAMIR, B ALEXSANDER SUPERVISOR PLASMA Unavailable Unavailable SAMIR, B ALEXSANDER SUPERVISOR PLASMA Unavailable Unavailable SAMIR, B ALEXSANDER SUPERVISOR PLASMA Unavailable Unavailable SAMIR, B ALEXSANDER SUPERVISOR PLASMA Unavailable Unavailable SAMIR, B ALEXSANDER SUPERVISOR PLASMA Unavailable Unavailable SAMIR, B ALEXSANDER SUPERVISOR PLASMA Unavailable Unavailable SAMIR, B ALEXSANDER SUPERVISOR PLASMA Unavailable Unavailable SAMIR, B ALEXSANDER SUPERVISOR PLASMA Unavailable Unavailable SAMIR, B ALEXSANDER SUPERVISOR PLASMA Unavailable Unavailable SAMIR, B ALEXSANDER SUPERVISOR PLASMA Unavailable Unavailable SAMIR, B ALEXSANDER SUPERVISOR PLASMA Unavailable Unavailable SAMIR, B ALEXSANDER SUPERVISOR PLASMA Unavailable Unavailable SAMIR, B ALEXSANDER SUPERVISOR PLASMA Unavailable Unavailable [id number], NA Unavailable [phone] Teresa Bañuelos, Leanne Hammonds MD, FACS Unavailable [...] is protected by Article 27-F of the [facility] Public Health law. If you continue you may have access to information: Regarding HIV / AIDS; Provided by facilities licensed or operated by the [facility] Office of Mental Health; or Provided by the [facility] Office for People With Developmental Disabilities. If such information is present, then the following [facility] mandated warning applies: This information [...] law may result in a fine or mcc sentence or both. A general authorization for the release of medical or other information is NOT sufficient authorization for further disc losure. Allergies and Adverse Reactions Type Description Substance Reaction Status Data Source(s ) Allergy to substance No Known Allergies No known allergies (situation ) PAM (Cassius Bañuelos MD [facility]) Encounters Encounter Providers Location Date Indications Data Source(s ) Outpatient Attender: ALEXSANDER DAWSON NP Physical Therapy 11:30:00 AM EDT [facility] ([facility]) Outpatient Attender: NA [id number] Physical Therapy 03/29/2021 09 :00:00 AM EDT [facility] ([facility]) Outpatient Attender: NA [id number] Physical Therapy 02/21/2021 09 :00:00 AM EDT [facility] ([facility]) Outpatient Attender: ALEXSANDER DAWSON NP Physical Therapy 10:45:00 AM EST [facility] ([facility]) <td ID="encounterTypeDescriptionID0">TRI AGE NEW PT NON URGENT</td><td>Cassius Llaa MD, FACS</td><td>Cassius Lala MD [facility]</td><td>12/23/2020</td><td>12:34PM</td><td>1:49PM</td><td><content ID="encounterDiagnosisID0-0">Dry Eye Syndrome Both Eyes</content>, <content ID="encounterDiagnosisID0-1">Diabetes Mellitus Type 2 Without Complication</content>, <content ID="encounterDiagnosisID0-2">Pituitary Macroadenoma</content></td>Outpatient Attender: Cassius Bañuelos MD, FACS Cassius Lala MD [facility] 12/23/2020 12:34:00 PM EST - 12/23/2020 01:49:00 PM ES T Pituitary MacroadenomaDiabetes Mellitus Type 2 Without ComplicationDry Eye Syndrome Both Eyes PAM (Cassius Bañuelos MD [facility]) Pituitary Macroadenoma Diabetes Mellitus Type 2 Without Complic ation Dry Eye Syndrome Both Eyes Outpatient Attender: ALEXSANDER DAWSON NP Physical Therapy 08:15:00 AM EST [facility] ([facility]) Medications Medication Brand Name [...] MG Oral Tablet PAM (Cassius Bañuelos MD [facility]) Desmopressin Acetate 0.1 MG Oral Tablet Desmopressin Acetate 12/16/2020 12:00:00 AM EST ORAL active [facility] ([facility] Desmopressin Acetate 0.2 MG Oral Tablet Desmopressin Acetate 11/23/2020 12:00:00 AM EST ORAL completed [facility] ([facility] ) Insurance Providers Payer name Policy type / Coverage type Policy ID Covered green party ID Covered green party's relationship to simms Policy Simms Plan Information [facility] [id number] [facility] [id number] Problems, Conditions, and Diagnoses Code Display Name Description Problem Type Effective Dates Data Source(s) 47519929 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 Problem 12/23/2020 12:00:00 AM EST PAM (Cassius Bañuelos MD [facility]) 250.00 Diabetes Mellitus Type 2 Without Complic ation Diabetes Mellitus Type 2 Without Complication Problem 12/23/2020 12:00:00 AM EST PAM (Abrahan Bañuelos MD [facility]) [id number] Pituitary macroadenoma (disorder) Pituitary Macroadeno ma Problem 12/23/2020 12:00:00 AM EST PAM (Cassius Bañuelos MD [facility]) Surgeries/Procedures Procedure Description Date Indications Data Source(s) OFFICE OUTPATIENT VISIT 25 MINUTES 08/04/2021 12:00:00 AM EDT [facility] ([facility]) OFFICE OUTPATIENT VISIT 5 MINUTES 03/29/2021 12:00:00 AM EDT [facility] ([facility] OFFICE OUTPATIENT VISIT 5 MINUTES 02/21/2021 12:00:00 AM EDT [facility] ([facility] ) No surgical / procedural history No surgical / procedural hi story 12/23/2020 12:00:00 AM EST PAM (Cassius Bañuelos MD [facility]) Visual Field 120 Visual Field 120 12/23/2020 12:00:00 AM EST PAM (Cassius Bañuelos MD [facility]) Comprehensive Eye Exam (Signi/Sep Eval. & Man.) Compre hensive Eye Exam (Signi/Sep Eval. & Man.) 12/23/2020 12:00:00 AM EST P[facility] (Cassius Bañuelos MD [facility]) Results No Information Social History Code Duration Value Status Description Data Source(s ) Smoking 03/03/2021 07:49:13 AM EDT Never smoked tobacco (findi ng) completed Never smoked tobacco (finding) PAM (Cassius Bañuelos MD [facility]) Vital Signs ID Date Data Source UNK Name Value Range Interpretation Code Description Data Source(s) Body weight 218.44 [lb_av] 218.44 [lb_av] [facility] ([facility]) Body height 66.5 [in_i] 66.5 [in_i] [facility] ([facility]) 5'6.50" Oxygen saturation in Arterial blood by Pulse oximetry 98 % 98 % [facility] ([facility]) Body mass index (BMI) [Ratio] 34.7 kg/m2 34.7 k g/m2 [facility] ([facility]) Systolic blood pressure 128 mm[Hg] 128 mm[Hg] [facility] ([facility] Diastolic blood pressure 80 mm[Hg] 80 mm[Hg] [facility] ([facility]) Heart rate 54 /min 54 /min [facility] ([facility]) Systolic blood pressure 124 mm[Hg] 124 mm[Hg] M [facility] ([facility] Diastolic blood pressure 70 mm[Hg] 70 mm[Hg] [facility] ([facility] Heart [facility] 71 /min 71 /min [facility] Body temperature 97.5 [degF] 97.5 [degF] [facility] ([facility]) Body height 66.5 [in_i] 66.5 [in_i] [facility] ([facility]) 5'6.50" Body weight 213.38 [lb_av] 213.38 [lb_av] [facility] T ([facility]) Body mass index (BMI) [Ratio] 33.9 kg/m2 33.9 k g/m2 [facility] ([facility]) Oxygen saturation in Arterial blood by Pulse oximetry 98 % 98 % [facility] ([facility]) Systolic blood pressure 118 mm[Hg] 118 mm[Hg] M [facility] ([facility]) Diastolic blood pressure 80 mm[Hg] 80 mm[Hg] [facility] ([facility]) Heart rate 68 /min 68 /min [facility] ([facility]) Body temperature 96.6 [degF] 96.6 [degF] [facility] ([facility]) Body height 66.5 [in_i] 66.5 [in_i] [facility] ([facility]) 5'6.50" Body weight 206.44 [lb_av] 206.44 [lb_av] [facility] ([facility]) Body mass index (BMI) [Ratio] 32.8 kg/m2 32.8 k g/m2 [facility] ([facility]) Oxygen saturation in Arterial blood by Pulse oximetry 98 % 98 % [facility] ([facility]) Systolic blood pressure 128 mm[Hg] 128 mm[Hg] M [facility] ([facility]) Diastolic blood pressure 84 mm[Hg] 84 mm[Hg] [facility] ([facility]) Heart rate 64 /min 64 /min [facility] ([facility]) Body temperature 97.5 [degF] 97.5 [degF] [facility] ([facility]) Body height 66.5 [in_i] 66.5 [in_i] [facility] ([facility]) 5'6.50" Body weight 210.00 [lb_av] 210.00 [lb_av] [facility] ([facility]) Body mass index (BMI) [Ratio] 33.4 kg/m2 33.4 k g/m2 [facility] ([facility]) Oxygen saturation in Arterial blood by Pulse oximetry 98 % 98 % [facility] ([facility])
[2021-10-07 12:46] LABS: GC DNA AMPLIFICATION NEGATIVE (NEGATIVE)
[2021-10-07] MEDS ORDERED: cefTRIAXone SOD 1 GM in D5W MINI-BAG PLUS 50 ML IV SCH (13:00)
[2021-10-07] MEDS ORDERED: ALBUTEROL 90 MCG/ACT 8GM HFA INHALER INH PRN (13:05)
[2021-10-07] MEDS ORDERED: DEXTROSE 50% 50 ML SYRINGE IV PRN (13:15)
[2021-10-07] MEDS ORDERED: GLUCAGON INJ 1MG VIAL SC PRN (13:15)
[2021-10-07] MEDS ORDERED: GLUCOSE 4GM CHEW TABLET PO PRN (13:15)
[2021-10-07 13:24] LABS: INR 1.07; PROTHROMBIN TIME 14.3 SECONDS (12.7-14.5)
[2021-10-07 13:25] LABS: PARTIAL THROMBOPLASTIN TIME 31.1 SECONDS (25.9-37.0)
[2021-10-07 13:27] LABS: D-DIMER QUANT 838.45 ng/ml (<500)
[2021-10-07] MEDS: DOXYCYCLINE HYCLATE 100 MG in D5W MINI-BAG PLUS 100 ML IV SCH (13:30)
[2021-10-07] MEDS: NS 1,000 ML IV SCH (13:30)
[2021-10-07 14:03] LABS: CK-MB VALUE MASS < 1.0 NG/ML (<3.6); CPK CREATINE PHOSPHOKINASE 34 U/L (26-192); MB/CK RELATIVE INDEX 2.94 (< OR =4)
[2021-10-07] MEDS ORDERED: REMDESIVIR 200 MG in NS 250 ML IV ONE (16:00)
[2021-10-07] MEDS ORDERED: SODIUM CHLORIDE 0.9% INJ 10 ML SYR IV ONE (18:00)
[2021-10-07] MEDS: DESMOPRESSIN ACETATE 0.1 MG TAB PO SCH ×2 (19:49→21:00)
[2021-10-07] MEDS: HumaLOG INSULIN (NovoLOG) PER UNIT SC SCH ×2 (20:00→21:00)
[2021-10-07 23:40] VITALS: BP 124/62
[2021-10-07 23:42] VITALS: O2SAT 72
[2021-10-07 23:50] VITALS: O2SAT 84
[2021-10-08] VITALS (17 sets, daily range): BP systolic 96–113; BP diastolic 53–63; O2SAT 87–98
[2021-10-08] MEDS: FERROUS SULFATE 325MG TAB PO SCH ×3 (00:25→20:17)
[2021-10-08] MEDS: ASCORBIC ACID 500 MG TAB PO SCH ×3 (00:26→20:17)
[2021-10-08] MEDS: guaiFENesin ER 600 MG TAB PO SCH ×3 (00:26→20:17)
[2021-10-08] MEDS: NS 1,000 ML IV SCH (00:29)
[2021-10-08] MEDS: DOXYCYCLINE HYCLATE 100 MG in D5W MINI-BAG PLUS 100 ML IV SCH (02:09)
[2021-10-08] MEDS: HumaLOG INSULIN (NovoLOG) PER UNIT SC SCH ×4 (07:30→20:17)
[2021-10-08] MEDS: MULTIVITAMINS/MINERALS THERAP 1 TAB PO SCH (08:24)
[2021-10-08] MEDS: DESMOPRESSIN ACETATE 0.1 MG TAB PO SCH ×3 (08:24→20:17)
[2021-10-08] MEDS: BARICITINIB 2MG TABLET (OLUMIANT) FOR EUA PO SCH (08:24)
[2021-10-08] MEDS: dexameTHASONE 4 MG/ML 1ML VIAL (J1100 PER 1MG) IV SCH (08:25)
[2021-10-08] MEDS: ENOXAPARIN 60MG/0.6ML SYRINGE (J1650 PER 10MG) SC SCH ×2 (08:29→20:16)
[2021-10-08 08:34] LABS: HEMATOCRIT 32.5 % (36.0-47.0); HEMOGLOBIN 9.6 g/dl (12.0-15.5); MEAN CORPUSCULAR HEMOGLOBIN 23.4 pg (27.0-33.0); MEAN CORPUSCULAR HGB CONC 29.5 g/dl (32.0-36.5); MEAN CORPUSCULAR VOLUME 79.3 fl (80.0-96.0); PLATELET COUNT, AUTOMATED 325 10^3/uL (150-450); WHITE BLOOD COUNT 8.5 10^3/uL (4.0-10.0)
[2021-10-08 08:38] LABS: ALBUMIN 2.5 GM/DL (3.2-5.2); ALT/SGPT 14 U/L (12-78); BILIRUBIN,TOTAL 0.3 MG/DL (0.2-1.0); BLOOD UREA NITROGEN 13 MG/DL (7-18); CALCIUM LEVEL 7.8 MG/DL (8.5-10.1); CARBON DIOXIDE LEVEL 27 MEQ/L (21-32); CHLORIDE LEVEL 108 MEQ/L (98-107); CREATININE FOR GFR 0.45 MG/DL (0.55-1.30); GLOMERULAR FILTRATION RATE > 60.0 (>58); GLUCOSE, FASTING 83 MG/DL (70-100); POTASSIUM SERUM 3.8 MEQ/L (3.5-5.1); SODIUM LEVEL 143 MEQ/L (136-145); TOTAL PROTEIN 6.7 GM/DL (6.4-8.2)
--- NOTE | 2021-10-08 13:39 | IPNPDOC ---
Date Seen The patient was seen on 10/08/21. Progress Note SUBJECTIVE: Increased oxygen demand, currently up to 10 L nasal cannula. Patient denies chest pain but admits to increased coughing at times and shortness of breath. OBJECTIVE PHYSICAL EXAMINATION: VS: Afebrile, 94% on 10 L nasal cannula. CONSTITUTIONAL: Ill-appearing female, resting in bed, AAO x 3 EYES: PERRLA, EOM intact HENT, MOUTH: Normocephalic, atraumatic, moist mucous membranes NECK: SUPPLE, no JVD, no lymphadenopathy, no carotid bruit CV: Regular rate and rhythm, S1S2 normal, no murmurs/rubs/gallops RESPIRATORY: Decreased breath sounds bilaterally, no rales/rhonchi/wheezes GI: BS positive in 4 quadrants, soft, nontender, nondistended, no rebound or guarding, no organomegaly : Deferred MUSCULOSKELETAL: Normal ROM. No cyanosis, clubbing, swelling, joint deformity, extremity edema INTEGUMENTARY: Intact, no rashes, no lesions, no erythema NEUROLOGIC: Cranial Nerves II-XII are intact, no focal deficits PSYCHIATRIC: Mood and affect are normal LABORATORY DATA: Please see below IMAGING: CXR: bibasilar infiltrates ASSESSMENT: 46-year-old female with past medical history of pituitary tumor, heavy menses, diabetes mellitus acute hypoxic respiratory failure secondary to COVID-19, rule out superimposed bacterial pneumonia. PLAN: Acute hypoxic respiratory failure secondary to COVID-19, rule out superimposed bacterial pneumonia -Increased oxygen requirements over the evening, currently up to 10 L nasal cannula -Chest x-ray above -Procalcitonin low -BNP low on admission; however, she was on fluids overnight so we will repeat BMP to see if elevated. If increased consider echocardiogram -D-dimer and inflammatory markers elevated -Blood cultures no growth x2 -F/u CTA chest to r/o PE -Started on doxycycline, ceftriaxone, remdesivir, dexamethasone, albuterol as needed, Mucinex, incentive spirometer, supplemental O2 to keep oxygen levels greater than 88%. Encourage awake pronation, has been doing poor with this -Covid labs per protocol -Precautions per protocol Syncope likely vasovagal episode in presence of acute illness above, cannot rule out hypoxic episode -Not suspicious of seizures, currently awake alert oriented x3 -Orthostatics negative -We will monitor closely here on telemetry -Starting IV fluids with gentle hydration rate, encourage p.o. intake -Holding off on echocardiogram at this time unless BNP is elevated Hx of pituitary gland tumor -Continue home desmopressin Iron deficiency anemia 2/2 to gastric bypass, heavy menses -History of admission for anemia -H/H stable -Ferrous sulfate twice daily -Daily CBC DM type II -Insulin sliding scale, fingerstick AC at bedtime, consistent carbohydrate diet, hypoglycemic protocol DVT prophylaxis -SCD/teds, no anticoagulation while patient is heavy on her menses as this could precipitate more bleeding. Consider starting 40 mg Enoxaparin SC daily if anything. DISPOSITION: Admitted as acute inpatient. Plan is discharge home when medically improved. VS, I&O, 24H, Fishbone Vital Signs/I&O Vital Signs Date Time Temp Pulse Resp B/P (MAP) Pulse Ox O2 Delivery O2 Flow Rate FiO2 10/08/21 10:13 10.0 10/08/21 08:00 94 High Flow Cannula 10/08/21 05:17 97.4 57 19 113/56 (75) I&O- Last 24 Hours up to 6 AM 10/08/21 06:00 Intake Total 1910 ml Balance 1910 ml Laboratory Data 24H LABS Laboratory Tests 2 10/07/21 19:42: Bedside Glucose (Misc Panel) 113H 10/08/21 05:03: Bedside Glucose (Misc Panel) 80 10/08/21 07:17: Nucleated Red Blood Cells % (auto) 0.0, Anion Gap 8, Glomerular Filtration Rate > 60.0, Calcium Level 7.8L, Total Bilirubin 0.3, Aspartate Amino Transf (AST/SGOT) 16, Alanine Aminotransferase (ALT/SGPT) 14, Alkaline Phosphatase 58, Total Protein 6.7, Albumin 2.5L, Albumin/Globulin Ratio 0.6L 10/08/21 07:37: 10/08/21 12:02: Bedside Glucose (Misc Panel) 113H CBC/BMP Laboratory Tests 10/08/21 07:17 Microbiology Microbiology 10/07/21 Blood Culture - Preliminary, Resulted No growth after 24 hours . All specim... 10/07/21 Blood Culture - Preliminary, Resulted No growth after 24 hours . All specim... 10/07/21 Wet Prep - Final, Complete Cindy Chaudhari MD Oct 08, 2021 13:39
[2021-10-08 14:28] LABS: NT-PRO BNP 51 PG/ML (<125)
[2021-10-08] MEDS ORDERED: ISOVUE-370 76% 100ML VIAL As Ordered ONE (15:18)
[2021-10-08 16:11] LABS: MYCOPLASMA PNEUMONIAE IgG 558 U/mL (0-99); MYCOPLASMA PNEUMONIAE IgM <770 U/mL (0-769)
--- NOTE | 2021-10-08 16:11 | REP ---
INDICATION: r/o PE. COMPARISON: Cough pending POC TECHNIQUE: Contrast dose: 75 ML of Isovue [address] technique: Helical scanning is acquired and overlapping 1.5 mm and contiguous 3 mm axial images are reformatted. In addition, maximum intensity projection and multiplanar re-formation images are generated in sagittal and coronal imaging projections. FINDINGS: There is good opacification in the pulmonary arterial tree. There is no evidence of vessel cut off or filling defect to suggest pulmonary embolus. Homogeneous opacity is seen in the thoracic aorta. There is no evidence of aneurysm or dissection. There is no pleural or pericardial effusion. No hilar or mediastinal mass or adenopathy is observed. There are still extensive areas of patchy bilateral upper and lower lobe ground-glass opacities throughout the lung lacy consistent with pneumonia. Commonly reported imaging features of COVID 19 pneumonia are present. Other processes such as influenza pneumonia, drug toxicity, and connective tissue disease can produce a similar pattern. The most extensive involvement is in the lower lobes bilaterally. There is a sliding-type hiatal hernia. The patient is status post gastric bypass procedure. Normal adrenal glands are observed. The visualized upper abdominal structures are otherwise unremarkable. No bony destructive lesion is seen. IMPRESSION: No CT evidence of pulmonary embolus. Extensive areas of pneumonia bilaterally as above. <Electronically signed by Ge Reardon > 10/08/21 [id number]
[2021-10-08] MEDS: REMDESIVIR 100 MG in NS 250 ML IV SCH (17:27)
[2021-10-08] MEDS: SODIUM CHLORIDE 0.9% INJ 10 ML SYR IV SCH (17:27)
[2021-10-09] VITALS: O2SAT 94
[2021-10-09 04:00] VITALS: BP 103/68; O2SAT 90; O2SAT 96
[2021-10-09] MEDS: HumaLOG INSULIN (NovoLOG) PER UNIT SC SCH ×4 (07:30→20:06)
[2021-10-09 08:00] VITALS: O2SAT 97
[2021-10-09] MEDS: FERROUS SULFATE 325MG TAB PO SCH ×2 (08:44→20:06)
[2021-10-09] MEDS: DESMOPRESSIN ACETATE 0.1 MG TAB PO SCH ×3 (08:44→20:06)
[2021-10-09] MEDS: BARICITINIB 2MG TABLET (OLUMIANT) FOR EUA PO SCH (08:45)
[2021-10-09] MEDS: guaiFENesin ER 600 MG TAB PO SCH ×2 (08:45→20:06)
[2021-10-09] MEDS: ASCORBIC ACID 500 MG TAB PO SCH ×2 (08:45→20:06)
[2021-10-09] MEDS: MULTIVITAMINS/MINERALS THERAP 1 TAB PO SCH (08:46)
[2021-10-09] MEDS: ENOXAPARIN 60MG/0.6ML SYRINGE (J1650 PER 10MG) SC SCH (08:46)
[2021-10-09] MEDS: dexameTHASONE 4 MG/ML 1ML VIAL (J1100 PER 1MG) IV SCH (08:46)
[2021-10-09 09:07] LABS: HEMATOCRIT 34.5 % (36.0-47.0); MEAN CORPUSCULAR HEMOGLOBIN 23.3 pg (27.0-33.0); MEAN CORPUSCULAR VOLUME 80.2 fl (80.0-96.0); PLATELET COUNT, AUTOMATED 441 10^3/uL (150-450); WHITE BLOOD COUNT 9.8 10^3/uL (4.0-10.0)
[2021-10-09 09:18] LABS: INR 1.19; PROTHROMBIN TIME 15.6 SECONDS (12.7-14.5)
[2021-10-09 09:19] LABS: PARTIAL THROMBOPLASTIN TIME 32.4 SECONDS (25.9-37.0)
[2021-10-09 09:31] LABS: ALBUMIN 2.6 GM/DL (3.2-5.2); ALT/SGPT 17 U/L (12-78); BILIRUBIN,TOTAL 0.3 MG/DL (0.2-1.0); BLOOD UREA NITROGEN 19 MG/DL (7-18); CALCIUM LEVEL 8.4 MG/DL (8.5-10.1); CARBON DIOXIDE LEVEL 28 MEQ/L (21-32); CHLORIDE LEVEL 107 MEQ/L (98-107); CREATININE FOR GFR 0.65 MG/DL (0.55-1.30); FERRITIN 58 NG/ML (8-252); GLOMERULAR FILTRATION RATE > 60.0 (>58); GLUCOSE, FASTING 81 MG/DL (70-100); LDH LACTATE DEHYDROGENASE 236 U/L (84-246); NT-PRO BNP 152 PG/ML (<125); POTASSIUM SERUM 3.5 MEQ/L (3.5-5.1); SODIUM LEVEL 143 MEQ/L (136-145); TOTAL PROTEIN 6.8 GM/DL (6.4-8.2)
[2021-10-09 12:00] VITALS: O2SAT 97
[2021-10-09 14:00] VITALS: BP 95/45
--- NOTE | 2021-10-09 14:06 | IPNPDOC ---
Date Seen The patient was seen on 10/09/21. Progress Note SUBJECTIVE: Decreased O2 demand, currently down to 5 L nasal cannula saturating at 90-96%. Other vital signs stable. Appears more awake and alert today. Patient denies chest pain but admits to increased coughing at times and shortness of breath. OBJECTIVE: PHYSICAL EXAMINATION: VS: Afebrile, 5 L nasal cannula saturating at 90-96%. CONSTITUTIONAL: No acute distress, sitting up in bed, AAO x 3 EYES: PERRLA, EOM intact HENT, MOUTH: Normocephalic, atraumatic, moist mucous membranes NECK: SUPPLE, no JVD, no lymphadenopathy, no carotid bruit CV: Regular rate and rhythm, S1S2 normal, no murmurs/rubs/gallops RESPIRATORY: Decreased breath sounds bilaterally, no rales/rhonchi/wheezes GI: BS positive in 4 quadrants, soft, nontender, nondistended, no rebound or guarding, no organomegaly : Deferred MUSCULOSKELETAL: Normal ROM. No cyanosis, clubbing, swelling, joint deformity, extremity edema INTEGUMENTARY: Intact, no rashes, no lesions, no erythema NEUROLOGIC: Cranial Nerves II-XII are intact, no focal deficits PSYCHIATRIC: Mood and affect are normal LABORATORY DATA: Please see below IMAGING: CTA chest: No CT evidence of pulmonary embolus. Extensive areas of pneumonia bilaterally as above. CXR: bibasilar infiltrates ASSESSMENT: 46-year-old female with past medical history of pituitary tumor, heavy menses, diabetes mellitus acute hypoxic respiratory failure secondary to COVID-19, rule out superimposed bacterial pneumonia. PLAN: Acute hypoxic respiratory failure secondary to COVID-19 PNA -Decrease oxygen requirements, currently on 5 L nasal cannula -Chest x-ray above -Procalcitonin low -BNP low -D-dimer and inflammatory markers elevated -Blood cultures no growth x2 -CTA chest above -Stopped doxycycline, ceftriaxone. Continue with remdesivir, dexamethasone, albuterol as needed, Mucinex, incentive spirometer, supplemental O2 to keep oxygen levels greater than 88%. Encourage awake pronation -Covid labs per protocol -Precautions per protocol Syncope likely vasovagal episode in presence of acute illness above, cannot rule out hypoxic episode -Not suspicious of seizures, currently awake alert oriented x3 -Orthostatics negative -BNP low -We will monitor closely here on telemetry -Encourage p.o. intake -Holding off on echocardiogram at this time unless BNP is elevated Hx of pituitary gland tumor -Continue home desmopressin Iron deficiency anemia 2/2 to gastric bypass, heavy menses -History of admission for anemia -H/H stable -Ferrous sulfate twice daily -Daily CBC DM type II -Insulin sliding scale, fingerstick AC at bedtime, consistent carbohydrate diet, hypoglycemic protocol DVT prophylaxis -Enoxaparin SC daily if anything. DISPOSITION: Admitted as acute inpatient. Plan is discharge home when medically improved. VS, I&O, 24H, Fishbone Vital Signs/I&O Vital Signs Date Time Temp Pulse Resp B/P (MAP) Pulse Ox O2 Delivery O2 Flow Rate FiO2 10/09/21 08:00 97 High Flow Cannula 6.0 10/09/21 04:00 98.9 50 18 103/68 (80) I&O- Last 24 Hours up to 6 AM 10/09/21 06:00 Intake Total 2060 ml Output Total 800 ml Balance 1260 ml Laboratory Data 24H LABS Laboratory Tests 2 10/08/21 16:46: Bedside Glucose (Misc Panel) 111H 10/08/21 20:00: Bedside Glucose (Misc Panel) 91 10/09/21 05:55: Bedside Glucose (Misc Panel) 82 10/09/21 08:14: Nucleated Red Blood Cells % (auto) 0.0, Prothrombin Time 15.6H, Prothromb Time International Ratio 1.19, Activated Partial Thromboplast Time 32.4, Fibrinogen 502H, Anion Gap 8, Glomerular Filtration Rate > 60.0, Calcium Level 8.4L, Ferritin 58, Total Bilirubin 0.3, Aspartate Amino Transf (AST/SGOT) 18, Alanine Aminotransferase (ALT/SGPT) 17, Alkaline Phosphatase 58, Lactate Dehydrogenase 236, Total Creatine Kinase 32, Troponin I High Sensitivity 52.0, AN-Pba-L-Type Natriuretic Peptide 152H, Total Protein 6.8, Albumin 2.6L, Albumin/Globulin Ratio 0.6L, Procalcitonin <0.05 10/09/21 11:37: Bedside Glucose (Misc Panel) 103 CBC/BMP Laboratory Tests 10/09/21 08:14 Microbiology Microbiology 10/07/21 Blood Culture - Preliminary, Resulted No Growth after 48 hours. All Specime... 10/07/21 Blood Culture - Preliminary, Resulted No Growth after 48 hours. All Specime... 10/07/21 Wet Prep - Final, Complete Cindy Chaudhari MD Oct 09, 2021 14:06
[2021-10-09] MEDS: REMDESIVIR 100 MG in NS 250 ML IV SCH (16:34)
[2021-10-09] MEDS: SODIUM CHLORIDE 0.9% INJ 10 ML SYR IV SCH (16:34)
[2021-10-09 20:00] VITALS: BP 114/61; O2SAT 98
[2021-10-10] VITALS: O2SAT 95
[2021-10-10 04:00] VITALS: BP 133/63; O2SAT 96
[2021-10-10 06:10] LABS: HEMATOCRIT 31.6 % (36.0-47.0); HEMOGLOBIN 9.3 g/dl (12.0-15.5); MEAN CORPUSCULAR HEMOGLOBIN 23.4 pg (27.0-33.0); MEAN CORPUSCULAR HGB CONC 29.4 g/dl (32.0-36.5); MEAN CORPUSCULAR VOLUME 79.4 fl (80.0-96.0); PLATELET COUNT, AUTOMATED 420 10^3/uL (150-450); RED BLOOD COUNT 3.98 10^6/uL (4.00-5.40); WHITE BLOOD COUNT 10.2 10^3/uL (4.0-10.0)
[2021-10-10 06:37] LABS: ALBUMIN 2.3 GM/DL (3.2-5.2); ALT/SGPT 22 U/L (12-78); BILIRUBIN,TOTAL 0.2 MG/DL (0.2-1.0); BLOOD UREA NITROGEN 16 MG/DL (7-18); CALCIUM LEVEL 7.4 MG/DL (8.5-10.1); CARBON DIOXIDE LEVEL 27 MEQ/L (21-32); CHLORIDE LEVEL 109 MEQ/L (98-107); CREATININE FOR GFR 0.51 MG/DL (0.55-1.30); GLOMERULAR FILTRATION RATE > 60.0 (>58); GLUCOSE, FASTING 82 MG/DL (70-100); POTASSIUM SERUM 3.3 MEQ/L (3.5-5.1); SODIUM LEVEL 142 MEQ/L (136-145); TOTAL PROTEIN 6.6 GM/DL (6.4-8.2)
[2021-10-10] MEDS: HumaLOG INSULIN (NovoLOG) PER UNIT SC SCH ×4 (07:21→20:05)
[2021-10-10 08:00] VITALS: O2SAT 96
[2021-10-10] MEDS ORDERED: POTASSIUM CHLORIDE 10MEQ SR TABLET PO ONE (09:00)
[2021-10-10] MEDS: BARICITINIB 2MG TABLET (OLUMIANT) FOR EUA PO SCH (09:20)
[2021-10-10] MEDS: FERROUS SULFATE 325MG TAB PO SCH ×2 (09:21→20:15)
[2021-10-10] MEDS: MULTIVITAMINS/MINERALS THERAP 1 TAB PO SCH (09:21)
[2021-10-10] MEDS: DESMOPRESSIN ACETATE 0.1 MG TAB PO SCH ×3 (09:21→20:15)
[2021-10-10] MEDS: guaiFENesin ER 600 MG TAB PO SCH ×2 (09:22→20:15)
[2021-10-10] MEDS: ASCORBIC ACID 500 MG TAB PO SCH ×2 (09:22→20:16)
[2021-10-10] MEDS: ENOXAPARIN 40MG/0.4ML SYRINGE (J1650 PER 10MG) SC SCH (09:23)
[2021-10-10] MEDS: dexameTHASONE 4 MG/ML 1ML VIAL (J1100 PER 1MG) IV SCH (09:23)
[2021-10-10 14:30] VITALS: BP 92/53
--- NOTE | 2021-10-10 15:16 | IPNPDOC ---
Date Seen The patient was seen on 10/10/21. Progress Note SUBJECTIVE: Saturating 92% on 3-4 L nasal cannula. No acute events overnight. PT to resume today. Patient denies chest pain but admits to increased coughing at times and shortness of breath. OBJECTIVE: PHYSICAL EXAMINATION: VS: Afebrile, 5 L nasal cannula saturating at 90-96%. CONSTITUTIONAL: No acute distress, sitting up in bed, AAO x 3 EYES: PERRLA, EOM intact HENT, MOUTH: Normocephalic, atraumatic, moist mucous membranes NECK: SUPPLE, no JVD, no lymphadenopathy, no carotid bruit CV: Regular rate and rhythm, S1S2 normal, no murmurs/rubs/gallops RESPIRATORY: Decreased breath sounds bilaterally, no rales/rhonchi/wheezes GI: BS positive in 4 quadrants, soft, nontender, nondistended, no rebound or guarding, no organomegaly : Deferred MUSCULOSKELETAL: Normal ROM. No cyanosis, clubbing, swelling, joint deformity, extremity edema INTEGUMENTARY: Intact, no rashes, no lesions, no erythema NEUROLOGIC: Cranial Nerves II-XII are intact, no focal deficits PSYCHIATRIC: Mood and affect are normal LABORATORY DATA: Please see below IMAGING: CTA chest: No CT evidence of pulmonary embolus. Extensive areas of pneumonia bilaterally as above. CXR: bibasilar infiltrates ASSESSMENT: 46-year-old female with past medical history of pituitary tumor, heavy menses, diabetes mellitus acute hypoxic respiratory failure secondary to COVID-19, rule out superimposed bacterial pneumonia. PLAN: Acute hypoxic respiratory failure secondary to COVID-19 PNA -Decrease oxygen requirements, currently on 3-4 L nasal cannula -Chest x-ray above -Procalcitonin low -BNP low -D-dimer elevated -Blood cultures no growth x2 -CTA chest above -Continue with remdesivir, dexamethasone, albuterol as needed, Mucinex, incentive spirometer, supplemental O2 to keep oxygen levels greater than 88%. Encourage awake pronation -Covid labs per protocol -Precautions per protocol Syncope likely vasovagal episode in presence of acute illness above, cannot rule out hypoxic episode -Not suspicious of seizures, currently awake alert oriented x3 -Orthostatics negative -BNP low -No events on tele -Encourage p.o. intake -Holding off on echocardiogram Physical deconditioning secondary to acute illness above -PT continue with service Hx of pituitary gland tumor -Continue home desmopressin Iron deficiency anemia 2/2 to gastric bypass, heavy menses -History of admission for anemia -H/H stable -Ferrous sulfate twice daily -Daily CBC DM type II -BS controlled -Insulin sliding scale, fingerstick AC at bedtime, consistent carbohydrate diet, hypoglycemic protocol DVT prophylaxis -Enoxaparin SC daily with heavy menses and incr bleeding, hx of anemia DISPOSITION: Admitted as acute inpatient. Plan is discharge home when medically improved. VS, I&O, 24H, Fishbone Vital Signs/I&O Vital Signs Date Time Temp Pulse Resp B/P (MAP) Pulse Ox O2 Delivery O2 Flow Rate FiO2 10/10/21 14:30 99.1 74 20 92/53 (66) 93 Room Air 10/10/21 08:00 8.0 I&O- Last 24 Hours up to 6 AM 10/10/21 06:00 Intake Total 1570 ml Balance 1570 ml Laboratory Data 24H LABS Laboratory Tests 2 10/09/21 16:45: Bedside Glucose (Misc Panel) 115H 10/09/21 19:37: Bedside Glucose (Misc Panel) 105 10/10/21 05:33: Nucleated Red Blood Cells % (auto) 0.0, Anion Gap 6L, Glomerular Filtration Rate > 60.0, Calcium Level 7.4L, Total Bilirubin 0.2, Aspartate Amino Transf (AST/SGOT) 20, Alanine Aminotransferase (ALT/SGPT) 22, Alkaline Phosphatase 52, Total Protein 6.6, Albumin 2.3L, Albumin/Globulin Ratio 0.5L 10/10/21 12:11: Bedside Glucose (Misc Panel) 124H CBC/BMP Laboratory Tests 10/10/21 05:33 Microbiology Microbiology 10/07/21 Blood Culture - Preliminary, Resulted No Growth after 72 hours. All specime... 10/07/21 Blood Culture - Preliminary, Resulted No Growth after 72 hours. All specime... 10/07/21 Wet Prep - Final, Complete Cindy Chaudhari MD Oct 10, 2021 15:16
[2021-10-10] MEDS: REMDESIVIR 100 MG in NS 250 ML IV SCH (16:18)
[2021-10-10] MEDS: SODIUM CHLORIDE 0.9% INJ 10 ML SYR IV SCH (16:37)
[2021-10-10 20:00] VITALS: BP 104/65; O2SAT 96
[2021-10-11] VITALS: O2SAT 94
[2021-10-11 04:00] VITALS: BP 104/63; O2SAT 95
[2021-10-11 06:22] LABS: HEMATOCRIT 31.7 % (36.0-47.0); HEMOGLOBIN 9.5 g/dl (12.0-15.5); MEAN CORPUSCULAR HEMOGLOBIN 23.5 pg (27.0-33.0); MEAN CORPUSCULAR VOLUME 78.5 fl (80.0-96.0); PLATELET COUNT, AUTOMATED 503 10^3/uL (150-450); RED BLOOD COUNT 4.04 10^6/uL (4.00-5.40); WHITE BLOOD COUNT 9.8 10^3/uL (4.0-10.0)
[2021-10-11 06:38] LABS: INR 1.08; PROTHROMBIN TIME 14.4 SECONDS (12.7-14.5)
[2021-10-11 06:39] LABS: PARTIAL THROMBOPLASTIN TIME 32.1 SECONDS (25.9-37.0)
[2021-10-11 06:53] LABS: FERRITIN 33 NG/ML (8-252); LDH LACTATE DEHYDROGENASE 206 U/L (84-246); NT-PRO BNP 125 PG/ML (<125)
[2021-10-11] MEDS: HumaLOG INSULIN (NovoLOG) PER UNIT SC SCH (07:30)
[2021-10-11 08:00] VITALS: O2SAT 95
[2021-10-11] MEDS: ENOXAPARIN 40MG/0.4ML SYRINGE (J1650 PER 10MG) SC SCH (08:35)
[2021-10-11] MEDS: dexameTHASONE 4 MG/ML 1ML VIAL (J1100 PER 1MG) IV SCH (08:36)
[2021-10-11] MEDS: FERROUS SULFATE 325MG TAB PO SCH (08:36)
[2021-10-11] MEDS: guaiFENesin ER 600 MG TAB PO SCH (08:36)
[2021-10-11] MEDS: ASCORBIC ACID 500 MG TAB PO SCH (08:37)
[2021-10-11] MEDS: BARICITINIB 2MG TABLET (OLUMIANT) FOR EUA PO SCH (08:37)
[2021-10-11] MEDS: DESMOPRESSIN ACETATE 0.1 MG TAB PO SCH (08:37)
[2021-10-11] MEDS: MULTIVITAMINS/MINERALS THERAP 1 TAB PO SCH (08:37)
[2021-10-11 12:14] LABS: ALBUMIN 2.5 GM/DL (3.2-5.2); ALT/SGPT 19 U/L (12-78); BILIRUBIN,TOTAL 0.2 MG/DL (0.2-1.0); BLOOD UREA NITROGEN 13 MG/DL (7-18); CALCIUM LEVEL 8.4 MG/DL (8.5-10.1); CARBON DIOXIDE LEVEL 27 MEQ/L (21-32); CHLORIDE LEVEL 109 MEQ/L (98-107); CREATININE FOR GFR 0.61 MG/DL (0.55-1.30); GLOMERULAR FILTRATION RATE > 60.0 (>58); GLUCOSE, FASTING 80 MG/DL (70-100); POTASSIUM SERUM 3.6 MEQ/L (3.5-5.1); SODIUM LEVEL 144 MEQ/L (136-145); TOTAL PROTEIN 6.9 GM/DL (6.4-8.2)
[2021-10-11] MEDS ORDERED: PRED10TA2 PO (12:27)
--- NOTE | 2021-10-11 18:04 | DS.PDOC ---
Discharge Summary General Date of Admission Oct 07, 2021 at 11:52 Date of Discharge 10/11/2021 Attending Physician: SFOIA ROWE DO Discharge Summary PROCEDURES PERFORMED DURING STAY: None. ADMITTING DIAGNOSES: 1. Acute hypoxia respiratory failure secondary to COVID-19. 2. Syncope possibly secondary to vasovagal episode 3. History of pituitary gland tumor 4. Iron deficiency anemia secondary to gastric bypass 5. Type 2 diabetes mellitus DISCHARGE DIAGNOSES: 1. Acute hypoxia respiratory failure secondary to COVID-19, resolved 2. Syncope possibly secondary to vasovagal episode 3. History of pituitary gland tumor 4. Iron deficiency anemia secondary to gastric bypass 5. Type 2 diabetes mellitus COMPLICATIONS/CHIEF COMPLAINT: Weakness. HISTORY OF PRESENT ILLNESS: Patient is a 46-year-old female who presented to the emergency department via EMS with chief complaint of increased weakness, loss consciousness concern for low blood pressure. Patient was awake and alert to give history and examination by the admitting provider. Patient states that her symptoms started on 09/29/2021 of progressively gotten worse. Patient went to the clinic on and was seen by her PCP and nurse for symptoms this morning. Her blood pressure was very low (exact number not known) and she lost consciousness for several minutes. No documented signs of seizure. She was b rought to the emergency department via EMS as there was concern for possible shock. She complains of dizziness, lightheadedness, back pain, body aches, nausea, weakness, lethargy, occasional productive cough of brown color/no overt blood seen, sinus congestion, headache, decreased appetite with last known meal unknown. Patient has heavy menses at baseline normal last 7 days she is currently on day 2 but the bleeding is no more than normal. She has been using Tylenol, ibuprofen, TheraFlu. She states that she is drinking well. No sick contact she is not vaccinated for COVID-19 because she was told not to get vaccinated with tumor. Patient fell on 10/06/2021 due to weakness. Emergency department, she was afebrile. COVID-19 test was positive. HOSPITAL COURSE: Patient was placed on oxygen and did require high flow oxygenation. Patient was on dexamethasone, remdesivir and baricitinib due to the acute hypoxic respiratory failure. Patient procalcitonin was less than 0.05 and antibiotics were discontinued. Patient continued to improve while on medication and had been on room air for about 24 hours tolerating this well. Patient was seen on 10/11/2021 and was doing well and the decision was made to discharge the patient home. Patient was discharged home on 10/11/2021. Home health care services were offered to the patient however, patient declined these. DISCHARGE MEDICATIONS: Please see below. ALLERGIES: Please see below. PHYSICAL EXAMINATION ON DISCHARGE: VITAL SIGNS: Please see below. General: Alert and oriented female patient who was sitting up in bed when I walked in. Patient not appear to be in acute distress. HEENT: Normocephalic, atraumatic, moist mucous membranes. Neck: No lymphadenopathy or thyromegaly Cardiac: Regular rate and rhythm, no murmurs, normal S1, normal S2 Pulm: Clear to auscultation bilaterally. No wheezes, rhonchi, rales Abd: Nondistended, nontender to palpation, normal bowel sounds Ext: No edema bilateral lower extremities LABORATORY DATA: Please see below. IMAGING: Chest x-ray performed on 10/07/2021 was reported to show bibasilar i nfiltrates. CT angiogram of the chest performed on 10/08/2021 is reported to show no CT evidence of pulmonary embolus. Extensive areas of pneumonia bilaterally consistent with COVID-19 PROGNOSIS: Good ACTIVITY: As tolerated. DIET: Regular DISCHARGE PLAN: Discharge home DISPOSITION: 01 Home, Self-Care. DISCHARGE INSTRUCTIONS: 1. Follow-up with primary care provider within 5 to 7 days of discharge. 2. Follow [facility] guidance for quarantine 3. Take prednisone taper as prescribed 4. Return to the emergency department symptoms worsen ITEMS TO FOLLOWUP ON ON OUTPATIENT: 1. Covid pneumonia to resolution. DISCHARGE CONDITION: Stable. TIME SPENT ON DISCHARGE: 35 minutes. Vital Signs/I&Os Vital Signs Date Time Temp Pulse Resp B/P (MAP) Pulse Ox O2 Delivery O2 Flow Rate FiO2 10/11/21 08:00 95 Room Air 10/11/21 04:00 98.0 46 18 104/63 (77) 10/10/21 08:00 8.0 I&O- Last 24 Hours up to 6 AM 10/11/21 06:00 Intake Total 840 ml Balance 840 ml Laboratory Data Labs 24H Laboratory Tests 2 10/10/21 19:40: Bedside Glucose (Misc Panel) 103 10/11/21 05:27: Nucleated Red Blood Cells % (auto) 0.2H, Prothrombin Time 14.4H, Prothromb Time International Ratio 1.08, Activated Partial Thromboplast Time 32.1, Fibrinogen 489H, Anion Gap 8, Glomerular Filtration Rate > 60.0, Calcium Level 8.4L, Ferritin 33, Total Bilirubin 0.2, Aspartate Amino Transf (AST/SGOT) 13, Alanine Aminotransferase (ALT/SGPT) 19, Alkaline Phosphatase 57, Lactate Dehydrogenase 206, Total Creatine Kinase 28, Troponin I High Sensitivity 24.0, ZI-Nfa-L-Type Natriuretic Peptide 125, Total Protein 6.9, Albumin 2.5L, Albumin/Globulin Ratio 0.6L, Procalcitonin <0.05 10/11/21 08:16: Bedside Glucose (Misc Panel) 85 10/11/21 12:22: Bedside Glucose (Misc Panel) 112H CBC/BMP Laboratory Tests 10/11/21 05:27 FSBS Laboratory Tests Test 10/10/21 19:40 10/11/21 08:16 10/11/21 12:22 Range/Units Bedside Glucose (Misc Panel) 103 85 112 70-105 MG/DL Microbiology Microbiology 10/07/21 Blood Culture - Preliminary, Resulted No Growth after 72 hours. All specime... 10/07/21 Blood Culture - Preliminary, Resulted No Growth after 72 hours. All specime... 10/07/21 Wet Prep - Final, Complete Discharge Medications Scheduled Ascorbic Acid (Vitamin C) 500 Mg Capsule, 500 MG PO BID, (Reported) Desmopressin Acetate (Desmopressin Acetate) 0.1 Mg Tablet, 0.1 MG PO TID, (Reported) 0900,1500,2100 Ferrous Sulfate (Ferrous Sulfate) 325 Mg Tablet.dr, 325 MG PO BID, (Reported) Metformin HCl (Metformin HCl ER) 500 Mg Tab.er.24h, 1,000 MG PO BID, (Reported) Multivit-Min/Folic Acid/Biotin (Women Multivit W-Biotin Gummy) 1 Each Tab.chew, 1 TAB PO DAILY, (Reported) Prednisone (Prednisone) 10 Mg Tablet, 10 MG PO TAPER Take 4 tabs daily x 3 days, then 3 tabs daily x 3 days, then 2 tabs daily x 3 days, then 1 tab daily x 3 days and stop Allergies Coded Allergies: No Known Allergies (Unverified , 08/23/20) SOFIA ROWE DO Oct 11, 2021 18:04
[2021-10-12 08:10] LABS: BODY FLUID CULTURE Not indicated. (.); LEGIONELLA ANTIGEN URINE Negative (Negative); ORGANISM ID Not indicated. (.); SPECIMEN SOURCE Urine (.); URINE STREP PNEUMONIAE ANTIGEN Negative (Negative)
== END 2021-10-11 14:23 | disposition home or self-care (01) | DRG 177 ==
LOC: EDBD 09:59 → M ED 09:59 → M ED INP 11:52 → ENRESERV 22:00 → M 4MAIN 23:42
PROVIDERS: ADMIT Internal Medicine; ATTEND Family Medicine
PROC: XW033E5 Introduction of Remdesivir Anti-infective into Peripheral Vein, Percutaneous Approach, New Technology Group 5 (ICD-10-PCS; principal; 2021-10-07)
PROC: 3E0333Z Introduction of Anti-inflammatory into Peripheral Vein, Percutaneous Approach (ICD-10-PCS; 2021-10-07)
DX: U07.1 COVID-19 (principal); J96.01 Acute respiratory failure with hypoxia; J15.9 Unspecified bacterial pneumonia; J12.82 Pneumonia due to coronavirus disease 2019; D50.9 Iron deficiency anemia, unspecified; E11.9 Type 2 diabetes mellitus without complications; N92.0 Excessive and frequent menstruation with regular cycle; R55 Syncope and collapse; E55.9 Vitamin D deficiency, unspecified; Z98.84 Bariatric surgery status; Z79.84 Long term (current) use of oral hypoglycemic drugs; Z79.899 Other long term (current) drug therapy